=== PATIENT | male | born 1960 | race Caucasian/White ===

== ENCOUNTER → 2016-12-13 | Outpatient (CLI) | payer BC, OTHER ==
[~2016-12-13] MED LIST: ATEN50TA2 PO; SYNT175T2 PO
[2016-12-13 13:29] LABS: BASO # 0.1 K/mm3 (0.0-0.2); BASO % 1.2 % (0.0-1.0); EOS # 0.3 K/mm3 (0.0-0.50); EOS % 3.1 % (0.0-3.0); LARGE UNSTAINED CELL # 0.2 K/mm3 (0.0-0.4); LARGE UNSTAINED CELL % 2.1 % (0.0-4.0); LYMPH # 2.5 K/mm3 (1.5-4.5); LYMPH % 27.8 % (24.0-44.0); MEAN CORPUSCULAR HEMOGLOBIN 31.3 pg (27.0-33.0); MEAN CORPUSCULAR HGB CONC 35.1 g/dl (32.0-36.5); MEAN CORPUSCULAR VOLUME 89.1 fl (80.0-96.0); MONO # 0.6 K/mm3 (0.0-0.8); MONO % 7.3 % (0.0-5.0); NEUTROPHILS % 58.4 % (36.0-66.0); PLATELET COUNT, AUTOMATED 211 k/mm3 (150-450); RED CELL DISTRIBUTION WIDTH 12.8 % (11.5-14.5); WHITE BLOOD COUNT 8.5 K/mm3 (4.0-10.0)
[2016-12-13 13:39] LABS: ALBUMIN 3.8 GM/DL (3.2-5.2); ALKALINE PHOSPHATASE 74 U/L (45-117); ALT/SGPT 49 U/L (12-78); ANION GAP 9 MEQ/L (8-16); AST/SGOT 24 U/L (15-37); BILIRUBIN,TOTAL 0.6 MG/DL (0.2-1.0); BLOOD UREA NITROGEN 15 MG/DL (7-18); CALCIUM LEVEL 8.8 MG/DL (8.5-10.1); CARBON DIOXIDE LEVEL 27 MEQ/L (21-32); CHLORIDE LEVEL 104 MEQ/L (98-107); CHOLESTEROL LEVEL 201 MG/DL (<200); CREATININE FOR GFR 1.04 MG/DL (0.70-1.30); FREE T4 1.02 NG/DL (0.76-1.46); GLOMERULAR FILTRATION RATE > 60.0 (>56); GLUCOSE, FASTING 94 MG/DL (70-105); POTASSIUM SERUM 4.6 MEQ/L (3.5-5.1); SODIUM LEVEL 140 MEQ/L (136-145); TOTAL PROTEIN 7.6 GM/DL (6.4-8.2); TRIGLYCERIDES LEVEL 229 MG/DL (<150)
== END ==
LOC: M WUC 09:59
PROVIDERS: ATTEND Family Medicine
DX: I10 Essential (primary) hypertension (principal); E03.9 Hypothyroidism, unspecified

== ENCOUNTER → 2017-02-26 | Outpatient (CLI) | payer OTHER, BC ==
[2017-02-26 13:53] LABS: FREE T4 1.62 NG/DL (0.76-1.46)
== END ==
LOC: M WUC 11:36
PROVIDERS: ATTEND Family Medicine
DX: E03.9 Hypothyroidism, unspecified (principal)

== ENCOUNTER → 2017-04-23 | Outpatient (CLI) | payer OTHER, BC ==
[2017-04-23 15:10] LABS: FREE T4 1.04 NG/DL (0.76-1.46)
== END ==
LOC: M WUC 10:45
PROVIDERS: ATTEND Family Medicine
DX: E03.9 Hypothyroidism, unspecified (principal)

== ENCOUNTER → 2018-01-27 | Outpatient (CLI) | payer OTHER, BC ==
[2018-01-27 18:12] LABS: BASO # 0.1 10^3/uL (0.0-0.2); BASO % 0.9 % (0.0-1.0); EOS # 0.1 10^3/uL (0.0-0.50); EOS % 1.7 % (0.0-3.0); HEMATOCRIT 43.8 % (42.0-52.0); HEMOGLOBIN 14.6 g/dl (13.5-17.5); LYMPH # 2.5 10^3/uL (1.5-4.5); LYMPH % 31.4 % (24.0-44.0); MEAN CORPUSCULAR HEMOGLOBIN 29.9 pg (27.0-33.0); MEAN CORPUSCULAR HGB CONC 33.3 g/dl (32.0-36.5); MEAN CORPUSCULAR VOLUME 89.6 fl (80.0-96.0); MONO # 0.9 10^3/uL (0.0-0.8); MONO % 10.9 % (0.0-5.0); NEUTROPHILS # 4.3 10^3/uL (1.8-7.7); NEUTROPHILS % 54.1 % (36.0-66.0); PLATELET COUNT, AUTOMATED 211 10^3/uL (150-450); RED BLOOD COUNT 4.89 10^6/uL (4.30-6.10); RED CELL DISTRIBUTION WIDTH 12.9 % (11.5-14.5); WHITE BLOOD COUNT 7.9 10^3/uL (4.0-10.0)
[2018-01-27 18:30] LABS: ALBUMIN 3.8 GM/DL (3.2-5.2); ALBUMIN/GLOBULIN RATIO 0.95 (1.00-1.93); ALKALINE PHOSPHATASE 79 U/L (45-117); ALT/SGPT 37 U/L (12-78); ANION GAP 7 MEQ/L (8-16); AST/SGOT 22 U/L (7-37); BILIRUBIN,TOTAL 0.7 MG/DL (0.2-1.0); BLOOD UREA NITROGEN 14 MG/DL (7-18); CALCIUM LEVEL 8.5 MG/DL (8.5-10.1); CARBON DIOXIDE LEVEL 27 MEQ/L (21-32); CHLORIDE LEVEL 107 MEQ/L (98-107); CHOLESTEROL LEVEL 181 MG/DL (<200); CHOLESTEROL RISK RATIO 5.027 (<5); CREATININE FOR GFR 1.02 MG/DL (0.70-1.30); FREE T4 1.23 NG/DL (0.76-1.46); GLOMERULAR FILTRATION RATE > 60.0 (>56); GLUCOSE, FASTING 101 MG/DL (70-100); HDL CHOLESTEROL 36 MG/DL (>40); LDL CHOLESTEROL 111 MG/DL (<100); NON-HDL-C 145 MG/DL; POTASSIUM SERUM 4.6 MEQ/L (3.5-5.1); SODIUM LEVEL 141 MEQ/L (136-145); TOTAL PROTEIN 7.8 GM/DL (6.4-8.2); TRIGLYCERIDES LEVEL 169 MG/DL (<150)
== END ==
LOC: M WUC 10:13
DX: I10 Essential (primary) hypertension (principal); E03.9 Hypothyroidism, unspecified

== ENCOUNTER → 2018-03-25 | Outpatient (CLI) | payer OTHER, BC ==
[2018-03-25 17:31] LABS: ALBUMIN 3.5 GM/DL (3.2-5.2); ALBUMIN/GLOBULIN RATIO 0.97 (1.00-1.93); ALKALINE PHOSPHATASE 82 U/L (45-117); ALT/SGPT 42 U/L (12-78); AST/SGOT 20 U/L (7-37); BILIRUBIN,DIRECT 0.1 MG/DL (0.0-0.2); BILIRUBIN,TOTAL 0.5 MG/DL (0.2-1.0); CHOLESTEROL LEVEL 130 MG/DL (<200); CHOLESTEROL RISK RATIO 4.482 (<5); FREE T4 1.03 NG/DL (0.76-1.46); HDL CHOLESTEROL 29 MG/DL (>40); LDL CHOLESTEROL 58 MG/DL (<100); NON-HDL-C 101 MG/DL; THYROID STIMULATING HORMONE 0.268 uIU/ML (0.358-3.740); TOTAL PROTEIN 7.1 GM/DL (6.4-8.2); TRIGLYCERIDES LEVEL 217 MG/DL (<150)
== END ==
LOC: M WUC 11:36
DX: E03.9 Hypothyroidism, unspecified (principal); E78.2 Mixed hyperlipidemia
CPT/HCPCS: 84443

== ENCOUNTER → 2018-09-21 | Outpatient (CLI) | payer OTHER, BC ==
[2018-09-21 18:58] LABS: BLOOD UREA NITROGEN 17 MG/DL (7-18); CALCIUM LEVEL 8.6 MG/DL (8.5-10.1); CARBON DIOXIDE LEVEL 27 MEQ/L (21-32); CHLORIDE LEVEL 106 MEQ/L (98-107); CREATININE FOR GFR 1.03 MG/DL (0.70-1.30); GLOMERULAR FILTRATION RATE > 60.0 (>56); GLUCOSE, FASTING 104 MG/DL (70-100); POTASSIUM SERUM 4.4 MEQ/L (3.5-5.1); SODIUM LEVEL 139 MEQ/L (136-145)
== END ==
LOC: M WUC 08:53
PROVIDERS: ATTEND Physician Assistant
DX: I10 Essential (primary) hypertension (principal)

== ENCOUNTER → 2019-03-26 | Outpatient (CLI) | payer OTHER, BC ==
[2019-03-26 12:52] LABS: ALBUMIN 3.7 GM/DL (3.2-5.2); ALT/SGPT 38 U/L (12-78); BILIRUBIN,TOTAL 0.7 MG/DL (0.2-1.0); BLOOD UREA NITROGEN 18 MG/DL (7-18); CALCIUM LEVEL 8.2 MG/DL (8.5-10.1); CARBON DIOXIDE LEVEL 30 MEQ/L (21-32); CHLORIDE LEVEL 105 MEQ/L (98-107); CHOLESTEROL LEVEL 132 MG/DL (<200); CHOLESTEROL RISK RATIO 3.771 (<5); FREE T4 1.09 NG/DL (0.76-1.46); GLOMERULAR FILTRATION RATE > 60.0 (>56); GLUCOSE, FASTING 86 MG/DL (70-100); HDL CHOLESTEROL 35 MG/DL (>40); LDL CHOLESTEROL 67 MG/DL (<100); NON-HDL-C 97 MG/DL; POTASSIUM SERUM 4.5 MEQ/L (3.5-5.1); SODIUM LEVEL 140 MEQ/L (136-145); TOTAL PROTEIN 7.1 GM/DL (6.4-8.2); TRIGLYCERIDES LEVEL 150 MG/DL (<150)
== END ==
LOC: M WUC 10:48
PROVIDERS: ATTEND Physician Assistant
DX: E03.9 Hypothyroidism, unspecified (principal); E78.2 Mixed hyperlipidemia; I10 Essential (primary) hypertension

== ENCOUNTER → 2019-10-20 | Outpatient (CLI) | payer BC, OTHER ==
--- NOTE | 2019-10-25 00:15 | SLEEPHOME ---
DATE OF PROCEDURE: 10/20/2019 ORDERED BY: Dr. Shanna Bernal Diagnostic home sleep testing was performed due to concern for the obstructive sleep apnea syndrome. For testing a nocturnal T3 respiratory monitoring device was used. Continuous record was made of pulse, oxygen saturation, airflow, chest, abdominal strain and body position. 9 hours and 59 minutes of data were reviewed. There were 7 hours and 34 minutes marked as time in bed. During the interval marked time in bed, there were 565 respiratory events identified of 10 seconds in duration or greater for a respiratory event index of 74.6. The events were primarily obstructive. Baseline pulse rate 66. Pulse rate ranged 44-93. Baseline saturation 92%, saturations fell as low as 71%. Testing was performed in both the supine and nonsupine positions. IMPRESSION: Abnormal home sleep testing with repetitive respiratory events and oxygen desaturations to 71% with a respiratory event index of 74.6 is consistent with the obstructive sleep apnea syndrome. RECOMMENDATIONS: The patient should be encouraged to undergo a formal sleep evaluation.
== END ==
LOC: M SLEEP HO 10:47
PROVIDERS: ATTEND Internal Medicine Pulmonary Disease
DX: G47.30 Sleep apnea, unspecified (principal)

== ENCOUNTER → 2019-11-26 | Outpatient (CLI) | payer BC, OTHER ==
--- NOTE | 2019-11-28 14:19 | SLEEPCENT ---
DATE OF PROCEDURE: 11/26/2019 ORDERED BY: Dr. Bernal Nocturnal polysomnography was performed for the titration of pressure therapy in this patient with obstructive sleep apnea syndrome. Apnea-hypopnea index of 74.6. For testing the patient was fit with a ResMed Quattro full-face mask of medium size; 4 cm of water pressure were applied to the circuit and the lights were extinguished. 7 hours and 46 minutes of data were reviewed. There were 295.5 minutes of sleep identified. Sleep latency was prolonged at 62 minutes. Rapid eye movement (REM) latency was also prolonged at 176 minutes. Sleep architecture improved with progressive pressure therapy. The patient slept well through REM at CPAP 16 cm. However, late in the study, the patient assumed the supine position with re-occurrence of apneic events, some central oxygen desaturations into the upper 80s. Some activity was also seen in the limb leads but limb movement arousals were few. IMPRESSION: Obstructive sleep apnea syndrome (G47.33). RECOMMENDATIONS" Initiation of CPAP at a pressure 16 would seem appropriate based on these findings. However, the occurrence of apneic events late in the study is troublesome and close clinical followup is recommended. Once the patient has become accustomed to the mask it may prudent to arrange for a repeat full night titration to address central events.
== END ==
LOC: M SLEEP 20:00
PROVIDERS: ATTEND Internal Medicine Pulmonary Disease
DX: G47.33 Obstructive sleep apnea (adult) (pediatric) (principal)

== ENCOUNTER → 2020-03-26 | Outpatient (CLI) | payer OTHER, BC ==
[2020-03-26 16:18] LABS: BASO # 0.1 10^3/uL (0.0-0.2); BASO % 0.8 % (0.0-1.0); EOS # 0.1 10^3/uL (0.0-0.5); EOS % 1.4 % (0.0-3.0); HEMATOCRIT 43.1 % (42.0-52.0); HEMOGLOBIN 14.2 g/dl (13.5-17.5); LYMPH # 2.8 10^3/uL (1.5-5.0); LYMPH % 31.6 % (24.0-44.0); MEAN CORPUSCULAR HEMOGLOBIN 29.8 pg (27.0-33.0); MEAN CORPUSCULAR HGB CONC 32.9 g/dl (32.0-36.5); MEAN CORPUSCULAR VOLUME 90.5 fl (80.0-96.0); NEUTROPHILS # 4.9 10^3/uL (1.5-8.5); NEUTROPHILS % 54.5 % (36.0-66.0); PLATELET COUNT, AUTOMATED 212 10^3/uL (150-450); RED BLOOD COUNT 4.76 10^6/uL (4.30-6.10)
[2020-03-26 16:55] LABS: ALBUMIN 3.7 GM/DL (3.2-5.2); ALT/SGPT 43 U/L (12-78); BILIRUBIN,TOTAL 0.4 MG/DL (0.2-1.0); BLOOD UREA NITROGEN 17 MG/DL (7-18); CALCIUM LEVEL 8.7 MG/DL (8.5-10.1); CARBON DIOXIDE LEVEL 31 MEQ/L (21-32); CHLORIDE LEVEL 103 MEQ/L (98-107); CHOLESTEROL LEVEL 147 MG/DL (<200); CHOLESTEROL RISK RATIO 4.323 (<5); CREATININE FOR GFR 1.06 MG/DL (0.70-1.30); FREE T4 0.99 NG/DL (0.76-1.46); GLOMERULAR FILTRATION RATE > 60.0 (>56); GLUCOSE, FASTING 90 MG/DL (70-100); HDL CHOLESTEROL 34 MG/DL (>40); LDL CHOLESTEROL 68 MG/DL (<100); NON-HDL-C 113 MG/DL; POTASSIUM SERUM 4.4 MEQ/L (3.5-5.1); SODIUM LEVEL 137 MEQ/L (136-145); TOTAL PROTEIN 7.5 GM/DL (6.4-8.2); TRIGLYCERIDES LEVEL 225 MG/DL (<150)
== END ==
LOC: M WUC 12:08
PROVIDERS: ATTEND Family Medicine
DX: Z00.00 Encounter for general adult medical examination without abnormal findings (principal)

== ENCOUNTER → 2020-05-01 | Outpatient (CLI) | payer SELFPAY | LOC: M LABSMTC 09:11 | PROVIDERS: ATTEND Pediatrics | DX: Z20.828 Contact with and (suspected) exposure to other viral communicable diseases (principal) ==

== ENCOUNTER → 2020-06-15 | Outpatient (REF) | payer OTHER | LOC: M LAB REF 17:16 | PROVIDERS: ATTEND Family Medicine | DX: R10.9 Unspecified abdominal pain (principal); R31.9 Hematuria, unspecified ==

== ENCOUNTER → 2020-07-12 | Outpatient (CLI) | payer OTHER ==
[2020-07-12 18:29] LABS: FREE T4 1.16 NG/DL (0.76-1.46); THYROID STIMULATING HORMONE 4.84 uIU/ML (0.358-3.740)
== END ==
LOC: M WUC 11:06
PROVIDERS: ATTEND Family Medicine
DX: E03.9 Hypothyroidism, unspecified (principal)

== ENCOUNTER → 2020-07-22 | Outpatient (CLI) | payer OTHER ==
[~2020-07-22] MED LIST changes: +ATOR1TAB19 PO; +METO1TAB7 PO; +OMEP40CA97 PO
== END ==
LOC: M LABSMTC 10:41
PROVIDERS: ATTEND Anesthesiology
DX: Z01.812 Encounter for preprocedural laboratory examination (principal); Z20.822 Contact with and (suspected) exposure to COVID-19

== ENCOUNTER 2020-07-27 06:56 | Day surgery (SDC) | payer BC, OTHER ==
[~2020-07-27] VITALS: Ht 175.3 cm; Wt 126.3 kg
[2020-07-27] MEDS ORDERED: NS 1,000 ML IV ONE (07:00)
[2020-07-27] MEDS ORDERED: LIDOCAINE 2% 100MG/5ML SDV (FOR ANES.) As Ordered ONE (07:24)
[2020-07-27] MEDS ORDERED: propofoL 200 MG/20 ML VIAL As Ordered ONE (07:24)
--- NOTE | 2020-07-27 08:23 | ROOR ---
Patient Name: Gutierrez Whitt Procedure Date: 07/27/2020 8:06 AM Date of : 1960 Age: 59 Room: [facility] Gender: Male Note Status: Finalized Procedure: Upper Endoscopy + Biopsies Indications: Heartburn, Exclusion of Jacob's esophagus Providers: Payam Peralta MD Referring MD: Isa Crowe MD Requesting Provider: Medicines: Monitored Anesthesia Care Complications: No immediate complications. Procedure: Pre-Anesthesia Assessment: - The heart rate, respiratory rate, oxygen saturations, blood pressure, adequacy of pulmonary ventilation, and response to care were monitored throughout the procedure. The Endoscope was introduced through the mouth, and advanced to the second part of duodenum. The upper GI endoscopy was accomplished without difficulty. The patient tolerated the procedure well. Findings: The Z-line was regular and was found 40 cm from the incisors. Multiple biopsies were obtained with cold forceps for evaluation to rule out Jacob's Esophagus randomly at the gastroesophageal junction. A small hiatal hernia was present. Localized mild inflammation characterized by congestion (edema) and linear erosions was found in the gastric antrum. Biopsies were taken with a cold forceps for Helicobacter pylori testing. The exam of the duodenum was otherwise normal. Impression: - Z-line regular, 40 cm from the incisors. - Small hiatal hernia. - Mucosal changes suspicious for gastritis. Biopsied. - Multiple biopsies were obtained at the gastroesophageal junction. - The examination was otherwise normal. Recommendation: - Patient has a contact number available for emergencies. The signs and symptoms of potential delayed complications were discussed with the patient. Return to normal activities tomorrow. Written discharge instructions were provided to the patient. - High fiber diet. - Discharge patient to home. - Follow an antireflux regimen. - Continue present medications. - Await pathology results. - Telephone GI clinic for pathology results in 1 week. - Return to referring physician. - The findings and recommendations were discussed with the patient. Procedure Code(s): --- Professional --- 44011, Esophagogastroduodenoscopy, flexible, transoral; with biopsy, single or multiple Diagnosis Code(s): --- Professional --- K44.9, Diaphragmatic hernia without obstruction or gangrene K31.89, Other diseases of stomach and duodenum R12, Heartburn CPT copyright 2019 [employer]. All rights reserved. The codes documented in this report are preliminary and upon data coder operator review may be revised to meet current compliance requirements. Payam Peralta MD Payam Peralta MD 07/27/2020 8:22:42 AM Electronically signed by Payam Peralta MD Number of Addenda: 0 Note Initiated On: 07/27/2020 8:06 AM Estimated Blood Loss: Estimated blood loss: none.
--- NOTE | 2020-07-27 08:33 | ROOR ---
Patient Name: Gutierrez Whitt Procedure Date: 07/27/2020 8:07 AM Date of : 1960 Age: 59 Room: [facility] Gender: Male Note Status: Finalized Procedure: Total Colonoscopy to Cecum + ileoscopy Indications: High risk colon cancer surveillance: Personal history of colonic polyps Providers: Payam Peralta MD Referring MD: Isa Crowe MD Requesting Provider: Medicines: Monitored Anesthesia Care Complications: No immediate complications. Procedure: Pre-Anesthesia Assessment: - The heart rate, respiratory rate, oxygen saturations, blood pressure, adequacy of pulmonary ventilation, and response to care were monitored throughout the procedure. The Colonoscope was introduced through the anus and advanced to the terminal ileum, with identification of the appendiceal orifice and IC valve. The colonoscopy was performed without difficulty. The patient tolerated the procedure well. The quality of the bowel preparation was excellent. Findings: The perianal and digital rectal examinations were normal. Non-bleeding internal hemorrhoids were found during retroflexion. The hemorrhoids were small and Grade I (internal hemorrhoids that do not prolapse). No other significant abnormalities were identified in a careful examination of the remainder of the colon. The exam was otherwise without abnormality on direct and retroflexion views. The terminal ileum appeared normal. The exam was otherwise without abnormality. Impression: - Non-bleeding internal hemorrhoids. - The examination was otherwise normal on direct and retroflexion views. - The examined portion of the ileum was normal. - The examination was otherwise normal. - No specimens collected. - The exam was otherwise normal to the cecum. Recommendation: - Patient has a contact number available for emergencies. The signs and symptoms of potential delayed complications were discussed with the patient. Return to normal activities tomorrow. Written discharge instructions were provided to the patient. - High fiber diet. - Discharge patient to home. - Continue present medications. - Repeat colonoscopy in 5 years for surveillance. - Return to referring physician. - The findings and recommendations were discussed with the patient. Procedure Code(s): --- Professional --- 46739, Colonoscopy, flexible; diagnostic, including collection of specimen(s) by brushing or washing, when performed (separate procedure) Diagnosis Code(s): --- Professional --- Z86.010, Personal history of colonic polyps K64.0, First degree hemorrhoids CPT copyright 2019 [employer]. All rights reserved. The codes documented in this report are preliminary and upon senior salesforce developer review may be revised to meet current compliance requirements. Payam Peralta MD Payam Peralta MD 07/27/2020 8:33:21 AM Electronically signed by Payam Peralta MD Number of Addenda: 0 Note Initiated On: 07/27/2020 8:07 AM Estimated Blood Loss: Estimated blood loss: none.
[2020-07-27 09:08] VITALS: BP 138/72
== END 2020-07-27 09:05 | disposition home or self-care (01) ==
LOC: M OPP 06:56
PROVIDERS: ATTEND Internal Medicine Gastroenterology
DX: Z12.11 Encounter for screening for malignant neoplasm of colon (principal); Z86.010 Personal history of colon polyps; Z80.0 Family history of malignant neoplasm of digestive organs; K64.0 First degree hemorrhoids; K44.9 Diaphragmatic hernia without obstruction or gangrene; K31.89 Other diseases of stomach and duodenum; R12 Heartburn; I10 Essential (primary) hypertension; Z83.71 Family history of colonic polyps; Z79.899 Other long term (current) drug therapy

== ENCOUNTER → 2020-09-30 | Outpatient (CLI) | payer BC, OTHER ==
[2020-09-30 12:56] LABS: ALBUMIN 3.8 GM/DL (3.2-5.2); ALT/SGPT 30 U/L (12-78); BILIRUBIN,TOTAL 0.6 MG/DL (0.2-1.0); BLOOD UREA NITROGEN 18 MG/DL (7-18); CARBON DIOXIDE LEVEL 27 MEQ/L (21-32); CHLORIDE LEVEL 107 MEQ/L (98-107); CREATININE FOR GFR 0.93 MG/DL (0.70-1.30); FREE T4 1.02 NG/DL (0.76-1.46); GLOMERULAR FILTRATION RATE > 60.0 (>56); GLUCOSE, FASTING 91 MG/DL (70-100); POTASSIUM SERUM 4.3 MEQ/L (3.5-5.1); SODIUM LEVEL 139 MEQ/L (136-145); TOTAL PROTEIN 7.5 GM/DL (6.4-8.2)
[2020-09-30 13:28] LABS: FOLATE 9.2 NG/ML; TOTAL 25(OH) VITAMIN D 20.3 NG/ML (30.0-100.0); VITAMIN B12 LEVEL 345 PG/ML
[2020-09-30 14:01] LABS: HEMOGLOBIN A1c 5.5 %
[2020-10-01 12:08] LABS: ANTINUCLEAR ANTIBODIES DIRECT Negative (Negative)
== END ==
LOC: M WUC 09:28
PROVIDERS: ATTEND Family Medicine
DX: G62.9 Polyneuropathy, unspecified (principal); E03.9 Hypothyroidism, unspecified

== ENCOUNTER → 2021-01-12 | Outpatient (CLI) | payer BC, OTHER ==
[~2021-01-12] MED LIST changes: +OMEP40CA4 PO; -OMEP40CA97 PO
[2021-01-12 20:03] LABS: ALBUMIN 3.7 GM/DL (3.2-5.2); ALT/SGPT 26 U/L (12-78); BILIRUBIN,TOTAL 0.6 MG/DL (0.2-1.0); BLOOD UREA NITROGEN 14 MG/DL (7-18); CALCIUM LEVEL 8.5 MG/DL (8.8-10.2); CARBON DIOXIDE LEVEL 30 MEQ/L (21-32); CHLORIDE LEVEL 108 MEQ/L (98-107); CHOLESTEROL LEVEL 123 MG/DL (<200); CHOLESTEROL RISK RATIO 3.727 (<5); CREATININE FOR GFR 1.02 MG/DL (0.70-1.30); FREE T4 1.21 NG/DL (0.76-1.46); GLOMERULAR FILTRATION RATE > 60.0 (>49); GLUCOSE, FASTING 87 MG/DL (70-100); HDL CHOLESTEROL 33 MG/DL (>40); LDL CHOLESTEROL 66 MG/DL (<100); NON-HDL-C 90 MG/DL; SODIUM LEVEL 141 MEQ/L (136-145); TOTAL PROTEIN 7.2 GM/DL (6.4-8.2); TRIGLYCERIDES LEVEL 122 MG/DL (<150)
== END ==
LOC: M WUC 15:38
PROVIDERS: ATTEND Nurse Practitioner Family
DX: E03.9 Hypothyroidism, unspecified (principal)

== ENCOUNTER 2021-03-03 03:57 | Emergency (ER) | payer BC, OTHER ==
[~2021-03-03] VITALS: Ht 175.3 cm; Wt 121.9 kg
[2021-03-03 04:48] LABS: BASO % 0.4 % (0.0-1.0); EOS # 0.1 10^3/uL (0.0-0.5); EOS % 1.3 % (0.0-3.0); HEMATOCRIT 43.1 % (42.0-52.0); HEMOGLOBIN 14.7 g/dl (13.5-17.5); LYMPH # 2.7 10^3/uL (1.5-5.0); LYMPH % 35.5 % (24.0-44.0); MEAN CORPUSCULAR HEMOGLOBIN 29.9 pg (27.0-33.0); MEAN CORPUSCULAR HGB CONC 34.1 g/dl (32.0-36.5); MEAN CORPUSCULAR VOLUME 87.8 fl (80.0-96.0); MONO # 0.9 10^3/uL (0.0-0.8); MONO % 12.5 % (2.0-8.0); NEUTROPHILS # 3.7 10^3/uL (1.5-8.5); NEUTROPHILS % 49.6 % (36.0-66.0); PLATELET COUNT, AUTOMATED 201 10^3/uL (150-450); RED BLOOD COUNT 4.91 10^6/uL (4.30-6.10); WHITE BLOOD COUNT 7.5 10^3/uL (4.0-10.0)
[2021-03-03 05:07] LABS: BLOOD UREA NITROGEN 20 MG/DL (7-18); CALCIUM LEVEL 8.3 MG/DL (8.8-10.2); CARBON DIOXIDE LEVEL 29 MEQ/L (21-32); CHLORIDE LEVEL 106 MEQ/L (98-107); CREATININE FOR GFR 1.06 MG/DL (0.70-1.30); GLOMERULAR FILTRATION RATE > 60.0 (>49); GLUCOSE, FASTING 114 MG/DL (70-100); POTASSIUM SERUM 3.6 MEQ/L (3.5-5.1); SODIUM LEVEL 139 MEQ/L (136-145)
[2021-03-03 05:21] LABS: RSV AMPLIFICATION NEGATIVE (NEGATIVE)
--- NOTE | 2021-03-03 05:29 | REPVR ---
PROCEDURE INFORMATION: Exam: XR Chest Exam date and time: 03/03/2021 4:10 AM Age: 60 years old Clinical indication: Other: Chest pain TECHNIQUE: Imaging protocol: XR of the chest. Views: 1 view. COMPARISON: No relevant prior studies available. FINDINGS: Lungs: Unremarkable. No consolidation. Pleural spaces: Unremarkable. No pleural effusion. No pneumothorax. Heart/Mediastinum: Unremarkable. No cardiomegaly. Bones/joints: Unremarkable. IMPRESSION: No acute findings. Electronically signed by: Michael Hazel On 03/03/2021 05:29:22 AM
--- OUTSIDE RECORDS SUMMARY | 2021-03-03 05:33 | CCD | Continuity of Care Document ---
Author Author Gutierrez CHAVEZ M.D. Organization Unknown Address [address] [place] [address] Phone [phone] Care Team Providers Care Analytics Senior Manager Name Role Phone [facility] [phone] Edmond Reyez III, MD [facility] [phone] Payam Peralta M.D. & Associate [facility] [phone] Problems Active Problems Provider Date Hypothyroidism Ibeth Gracia FNP Onset: 07/14/2020 Essential hypertension Ibeth Gracia FNP Onset: Obstructive sleep apnea syndrome Ibeth Gracia FNP Onset: 07/14/2020 Social History Type Date Description Comments Sex Unknown Tobacco Use Start: Unknown Never Smoked Cigarettes Smoking Status Reviewed: 01/14/21 Never Smoked Cigarettes Tobacco Use Start: Unknown Never Used Smokeless Tobacco ETOH Use Occasionally consumes alcohol Tobacco Use Start: Unknown Patient has never smoked Recreational Drug Use Denies Drug Use Exercise Type/Frequency Exercises regularly lift s weights only Tattoo/Piercing None Sun Exposure Uses sunscreen Seat Belt/Car Seat Always uses seat belt Bike Helmet Never Smoke Alarms Yes Smoke Alarms Carbon Monoxide Detector: Yes Allergies, Adverse Reactions, Alerts Description No Known Drug Allergies Medications Active Medications SIG Qnty Indications Ordering Provide r Date Gabapentin 300mg Capsules 1 by mouth three times a day as needed for pain in feet 60caps G62.9 Isa Chavez M.D. 09/30/2020 Atorvastatin Calcium 10mg Tablets take one tablet by mouth every day 90tabs E78.2 Isa Chavez M. D. 02/06/2018 Levothyroxine Sodium 200mcg Tablet s take one tablet by mouth every day 90tabs E03.9 Isa Chavez M.D. 02/06/2018 Metoprolol Succinate ER 50mg Tablets ER 24HR Take One Tablet By Mouth Every Day 90tabs I10 Isa Goodman ms, M.D. 05/24/2017 Multivitamin/Minerals Capsules one po qd otc Unknown Omeprazole 40mg Capsules DR 1 by mouth every day as needed 90caps Isa Chavez M.D. Saline Nasal [place] 0.65% Solution use 4 times a day for nasal congestion/irritation Unkn own Flonase Allergy Relief 50mcg/Act Suspension 2 spray each nostril daily Unknown 0 Vitamin D 50mcg (1999) Capsules Unknown Immunizations CPT Code Status Date Vaccine Lot # [id number] Given 08/04/2020 Pfizer-Sars-(Cov id-19) vaccine, mRNA, LNP-S, PF, 30 mcg/ 0.3 mL 06381 Given 07/14/2020 Pfizer-Sars-(Cov id-19) vaccine, mRNA, LNP-S, PF, 30 mcg/ 0.3 mL 06872 Given 03/29/2020 Influenza Virus Vaccine, Quadrivalent,age 3 and up,multidose vial [id number] 48274 Given 03/27/2019 Influenza Virus Vaccine, Quadrivalent,age 3 and up,multidose vial [id number] 68970 Given 03/27/2018 Influenza Virus Vaccine, Quadrivalent,age 3 and up,multidose vial [id number] 53424 Given 01/15/2015 Adacel 11 Yrs or older [id number] Given 01/02/2014 Adacel 11 Yrs or older [id number] Refused 01/15/2015 Influenza Vaccination Vital Signs Date Vital Result Comment 01/14/2021 8:24am BP Systolic 139 mmHg BP Diastolic 80 mmHg Heart Rate 55 /min Body Temperature 97.1 F Respiratory Rate 18 /min Height 69.25 inches 5'9.25" Weight 271.12 lb O2 % BldC Oximetry 98 % Peak Expiratory Flow Rate 504 Estimated Peak Flow Rate Warren Body Weight 160 lb BMI (Body Mass Index) 39.7 kg/m2 09/30/2020 8:16am BP Systolic 136 mmHg BP Diastolic 70 mmHg Heart Rate 63 /min Body Temperature 96.8 F Respiratory Rate 16 /min Height 69.25 inches 5'9.25" Weight 274.12 lb O2 % BldC Oximetry 98 % Peak Expiratory Flow Rate 504 Estimated Peak Flow Rate Warren Body Weight 160 lb BMI (Body Mass Index) 40.2 kg/m2 Results Test Acquired Date Facility Test Result H/L Range Note Comprehensive Metabolic Profil 01/12/2021 [facility] [place], [place] [id number] [phone] Glucose, Fasting 87 mg/dL Normal 70-100 Blood Urea Nitrogen 14 mg/dL Normal 7-18 Creatinine For GFR 1.02 mg/dL Normal 0.70-1.30 Glomerular Filtration Rate > 60.0 Normal >49 1 Sodium Level 141 mEq/L Normal 136-145 Potassium Serum 4.0 mEq/L Normal 3.5-5.1 Chloride Level 108 mEq/L High 98-107 Carbon Dioxide Level 30 mEq/L Normal 21-32 Anion Gap 3 mEq/L Low 8-16 Calcium Level 8.5 mg/dL Low 8.8-10.2 Ast/Sgot 13 U/L Normal 7-37 Alt/SGPT 26 U/L Normal 12-78 Alkaline Phosphatase 79 U/L Normal 45-117 Bilirubin,Total 0.6 mg/dL Normal 0.2-1.0 Total Protein 7.2 GM/DL Normal 6.4-8.2 Albumin 3.7 GM/DL Normal 3.2-5.2 Albumin/Globulin Ratio 1.1 Normal Lipid Panel 01/12/[address] [facility] [place], [place] [id number] [phone] Triglycerides Level 122 mg/dL Normal <150 Cholesterol Level 123 mg/dL Normal <200 HDL Cholesterol 33 mg/dL Low >40 LDL Cholesterol 66 mg/dL Normal <100 Non-HDL-C 90 mg/dL Normal Cholesterol Risk Ratio 3.727 Normal <5 TSH And T4 Free ([facility]) 01/12/[address] [facility] [place], [place] [id number] [phone] Thyroid Stimulating Hormone 2.010 uIU/ML Normal 0. 358-3.740 Free T4 1.21 ng/dL Normal 0.76-1.46 Vitamin B12 & Folate 09/30/2020 [facility] enter [phone] Vitamin B12 Level 345 pg/mL Normal 2 Folate 9.2 NG/ML Normal 3 Laboratory test finding 09/30/2020 [facility] [phone] Total 25(Oh) Vitamin D 20.3 NG/ML Low 30.0-100. 0 Antinuclear Antibodies 09/30/2020 [facility] [phone] Antinuclear Antibodies Direct Negative Normal Ne gative 4 Comprehensive Metabolic Profil 09/30/2020 [facility] [phone] Glucose, Fasting 91 mg/dL Normal 70-100 Blood Urea Nitrogen 18 mg/dL Normal 7-18 Creatinine For GFR 0.93 mg/dL Normal 0.70-1.30 Glomerular Filtration Rate > 60.0 Normal >56 5 Sodium Level 139 mEq/L Normal 136-145 Potassium Serum 4.3 mEq/L Normal 3.5-5.1 Chloride Level 107 mEq/L Normal 98-107 Carbon Dioxide Level 27 mEq/L Normal 21-32 Anion Gap 5 mEq/L Low 8-16 Calcium Level 8.0 mg/dL Low 8.5-10.1 Ast/Sgot 19 U/L Normal 7-37 Alt/SGPT 30 U/L Normal 12-78 Alkaline Phosphatase 96 U/L Normal 45-117 Bilirubin,Total 0.6 mg/dL Normal 0.2-1.0 Total Protein 7.5 GM/DL Normal 6.4-8.2 Albumin 3.8 GM/DL Normal 3.2-5.2 Albumin/Globulin Ratio 1.0 Normal Laboratory test finding 09/30/2020 [facility] [phone] Thyroid Stimulating Hormone 2.750 uIU/ML Normal 0. 358-3.740 Free T4 1.02 ng/dL Normal 0.76-1.46 Hemoglobin A1c 09/30/2020 [facility] nter [phone] Hemoglobin A1c 5.5 % Normal 6 Estimated Average Glucose 111 mg/dL High 60-110 1 Units are mL/min/1.73 m2 Chronic Kidney Disease Staging per NKF: Stage I & II GFR >=60 Normal to Mildly Decreased Stage III GFR 30-59 Moderately Decreased Stage IV GFR 15-29 Severely Decreased Stage V GFR <15 Very Little GFR Left ESRD GFR <15 on GANG INVESTIGATOR 2 VITAMIN B12 NORMAL RANGE NORMAL 247 - 911 PG/ML INDETERMINATE 211 - 246 PG/ML DEFICIENT LESS THAN 211 PG/ML 3 FOLATE NORMAL RANGE NORMAL GREATER THAN 5.4 NG/ML INDETERMINATE 3.4-5.4 NG/ML DEFICIENT LESS THAN 3.4 NG/ML 4 Performed at: RN - [facility] [address] [id number] Electrostatic Painter: Yina Iverson MD, Phone: [phone] Units are mL/min/1.73 m2 Chronic Kidney Disease Staging per NKF: Stage I & II GFR >=60 Normal to Mildly Decreased Stage III GFR 30-59 Moderately Decreased Stage IV GFR 15-29 Severely Decreased Stage V GFR <15 Very Little GFR Left ESRD GFR <15 on GANG INVESTIGATOR 6 REFERENCE RANGES: <=5.6% NORMAL 5.7-6.4% SUGGESTS IMPAIRED GLUCOSE META BOLISM/PREDIABETIC >= 6.5% ABNORMAL Procedures Date Code Description Status 01/14/2021 08418 Office/Outpatient Established Mo d MDM 30-39 Min Completed 09/30/2020 43861 Office/Outpatient Established Mo d MDM 30-39 Min Completed Medical Devices Description No Information Available Encounters Type Date Location Provider Dx Diagnosis Office Visit 01/14/2021 8:15a Main Office Isa Chavez M.D. E 03.9 Hypothyroidism, unspecified I10 Essential (primary) hyperten arnulfo G47.33 Obstructive sleep apnea (hay lt) (pediatric) E55.9 Vitamin D deficiency, unspec ified E78.2 Mixed hyperlipidemia Office Visit 09/30/2020 8:15a Main Office Isa Chavez M.D. G 62.9 Polyneuropathy, unspecified Assessments Date Code Description Provider 01/14/2021 E03.9 Hypothyroidism, unspecified Will Isa mcknight M.D. 01/14/2021 I10 Essential (primary) hypertension Isa Chavez M.D. 01/14/2021 G47.33 Obstructive sleep apnea (adult) (pediatric) Isa Chavez M.D. 01/14/2021 E55.9 Vitamin D deficiency, unspecifie d Isa Chavez M.D. 01/14/2021 E78.2 Mixed hyperlipidemia Lorenza Chavez M.D. 09/30/2020 G62.9 Polyneuropathy, unspecified Will Isa mcknight M.D. Plan of Treatment Future Appointment(s):* 08/09/2021 9:00 am - Isa Chavez M.D. at Main Office 01/14/2021 - Isa Chavez M.D.* E03.9 Hypothyroidism, unspecified* New Labs:* Free T4, Scheduled: 07/06/21 * Thyroid Stimulating Hormone, Scheduled: 07/06/21 * Comments:* levels are good, repeat in 6 months. * I10 Essential (primary) hypertension * G47.33 Obstructive sleep apnea (adult) (pediatric)* Comments:* Using CPAP. * E55.9 Vitamin D deficiency, unspecified* New Labs:* Vitamin D 25-Hydroxy, Scheduled: 07/06/21 * Comments:* repeat level in 6 months, doing well. * E78.2 Mixed hyperlipidemia Goals 01/14/2021 - Isa Chavez M.D.* I10 Essential (primary) hypertension* Stay active and continue meds to maintain good blood pressure readings. Functional Status Functional Condition Comment Date Status Bifocal glasses Active Independent with all ADL's Activ e Cpap Machine Active Mental Status Mental Condition Comment Date Status None Active Referrals Description No Information Available
--- OUTSIDE RECORDS SUMMARY | 2021-03-03 05:33 | CCD | Continuity of Care Document ---
Author Author Gutierrez CHAVEZ M.D. Organization Unknown Address [address] [place] [address] Phone [phone] Care Team Providers Care Airline Operations Agent Name Role Phone [facility] [phone] Edmond Reyez III, MD [facility] [phone] Payam Peralta M.D. & Associate [facility] Problems Active Problems Provider Date Hypothyroidism Ibeth [...] needed 90caps Isa Chavez M.D. Saline Nasal [place] 0.65% Solution use 4 times a day for nasal congestion/irritation Unkn own Flonase Allergy Relief 50mcg/Act Suspension 2 spray each nostril daily Unknown 0 Vitamin D 50mcg (1999) Capsules Unknown Immunizations CPT Code Status Date Vaccine Lot # [id number] Given 08/04/2020 Pfizer-Sars-(Cov id-19) vaccine, mRNA, LNP-S, PF, 30 mcg/ 0.3 mL [id number] Given 07/14/2020 Pfizer-Sars-(Cov id-19) vaccine, mRNA, LNP-S, PF, 30 mcg/ 0.3 mL 93087 Given 03/29/2020 Influenza Virus Vaccine, Quadrivalent,age 3 and up,multidose vial [id number] 52116 Given 03/27/2019 Influenza Virus Vaccine, Quadrivalent,age 3 and up,multidose vial [id number] 28105 Given 03/27/2018 Influenza Virus Vaccine, Quadrivalent,age 3 and up,multidose vial [id number] 93526 Given 01/15/2015 Adacel 11 Yrs or older [id number] [place] [id number] Given 01/02/2014 Adacel 11 Yrs or older [id number] AA [id number] Refused 01/15/2015 Influenza Vaccination Vital Signs Date Vital Result Comment 01/14/2021 8:24am BP Systolic 139 mmHg BP Diastolic 80 mmHg Heart Rate 55 /min Body Temperature 97.1 F Respiratory Rate 18 /min Height 69.25 inches 5'9.25" Weight 271.12 lb O2 % BldC Oximetry 98 % Peak Expiratory Flow Rate 504 Estimated Peak Flow Rate [place] Body Weight 160 lb BMI (Body Mass Index) 39.7 kg/m2 09/30/2020 8:16am BP Systolic 136 mmHg BP Diastolic 70 mmHg Heart Rate 63 /min Body Temperature 96.8 F Respiratory Rate 16 /min Height 69.25 inches 5'9.25" Weight 274.12 lb O2 % BldC Oximetry 98 % Peak Expiratory Flow Rate 504 Estimated Peak Flow Rate [place] Body Weight 160 lb BMI (Body Mass Index) 40.2 kg/m2 Results Test Acquired Date Facility Test Result H/L Range Note Comprehensive Metabolic Profil 01/12/2021 [facility] [place], [place] [id number] [phone] Glucose, Fasting 87 mg/dL Normal 70-100 Blood [...] Albumin/Globulin Ratio 1.1 Normal Lipid Panel 01/12/[address] [facility] [address] [facility] [place], [place] [id number] [phone] Triglycerides Level 122 mg/dL Normal <150 Cholesterol Level 123 mg/dL Normal <200 HDL Cholesterol 33 mg/dL Low >40 LDL Cholesterol 66 mg/dL Normal <100 Non-HDL-C 90 mg/dL Normal Cholesterol Risk Ratio 3.727 Normal <5 TSH And T4 Free ([facility]) 01/12/[address] [facility] [address] [facility] [place], [place] [id number] [phone] Thyroid Stimulating Hormone 2.010 uIU/ML Normal 0. 358-3.740 Free T4 1.21 ng/dL Normal 0.76-1.46 Vitamin B12 & Folate 09/30/2020 [facility] enter [phone] Vitamin B12 Level 345 pg/mL Normal 2 Folate 9.2 NG/ML Normal 3 Laboratory test finding 09/30/2020 [facility] [phone] Total 25(Oh) Vitamin D 20.3 NG/ML Low 30.0-100. 0 Antinuclear Antibodies 09/30/2020 [facility] [phone] Antinuclear Antibodies Direct Negative Normal Ne gative 4 Comprehensive Metabolic Profil 09/30/2020 [facility] [phone] Glucose, Fasting 91 mg/dL Normal 70-100 Blood [...] Ratio 1.0 Normal Laboratory test finding 09/30/2020 [facility] [phone] Thyroid Stimulating Hormone 2.750 uIU/ML Normal 0. 358-3.740 Free T4 1.02 ng/dL Normal 0.76-1.46 Hemoglobin A1c 09/30/2020 [facility] nter [phone] Hemoglobin A1c 5.5 % Normal 6 Estimated Average Glucose 111 mg/dL High 60-110 1 Units are mL/min/1.73 m2 Chronic Kidney Disease Staging per NKF: Stage I & II GFR >=60 Normal to Mildly Decreased Stage III GFR 30-59 Moderately Decreased Stage IV GFR 15-29 Severely Decreased Stage V GFR <15 Very Little GFR Left ESRD GFR <15 on PARTS DESIGNER 2 VITAMIN B12 NORMAL RANGE NORMAL 247 - 911 PG/ML INDETERMINATE 211 - 246 PG/ML DEFICIENT LESS THAN 211 PG/ML 3 FOLATE NORMAL RANGE NORMAL GREATER THAN 5.4 NG/ML INDETERMINATE 3.4-5.4 NG/ML DEFICIENT LESS THAN 3.4 NG/ML 4 Performed at: RN - [facility] [address] [id number] Wax Machine Operator: Yina Iverson MD, Phone: [phone] Units are mL/min/1.73 m2 Chronic Kidney Disease Staging per NKF: Stage I & II GFR >=60 Normal to Mildly Decreased Stage III GFR 30-59 Moderately Decreased Stage IV GFR 15-29 Severely Decreased Stage V GFR <15 Very Little GFR Left ESRD GFR <15 on PARTS DESIGNER 6 REFERENCE RANGES: <=5.6% NORMAL 5.7-6.4% SUGGESTS IMPAIRED GLUCOSE META BOLISM/PREDIABETIC >= 6.5% ABNORMAL Procedures Date Code Description Status 09/30/2020 39405 Office/Outpatient Established Mo d MDM 30-39 Min Completed Medical Devices Description No Information Available Encounters Type Date Location Provider Dx Diagnosis Office Visit 09/30/2020 8:15a Main Office Isa Chavez M.D. G 62.9 Polyneuropathy, unspecified Assessments Date Code Description Provider 01/14/2021 E03.9 Hypothyroidism, unspecified Will Isa mcknight M.D. 01/14/2021 I10 Essential (primary) hypertension Isa Chavez M.D. 01/14/2021 G47.33 Obstructive sleep apnea (adult) (pediatric) Isa Chavez M.D. 01/14/2021 E55.9 Vitamin D deficiency, unspecifie d Isa Chavez M.D. 09/30/2020 G62.9 Polyneuropathy, unspecified Will Isa mcknight M.D. Plan of Treatment 01/14/2021 - Isa Chavez M.D.* E03.9 Hypothyroidism, unspecified* New Labs:* Free T4, Scheduled: 07/06/21 * Thyroid Stimulating Hormone, Scheduled: 07/06/21 * I10 Essential (primary) hypertension * G47.33 Obstructive sleep apnea (adult) (pediatric) * E55.9 Vitamin D deficiency, unspecified* New Labs:* Vitamin D 25-Hydroxy, Scheduled: 07/06/21 Functional Status Functional Condition Comment Date Status Bifocal glasses Active Independent with all ADL's Activ e Cpap Machine Active Mental Status Mental Condition Comment Date Status None Active Referrals Description No Information Available
--- OUTSIDE RECORDS SUMMARY | 2021-03-03 05:33 | CCD | Continuity of Care Document ---
Author Author Gutierrez GRACIA DIETETICS PROFESSOR Organization Unknown Address [address] [place] [address] Phone [phone] Care Team Providers Care Wastewater Design Engineer Name Role Phone [facility] [phone] Edmond Reyez III, MD [facility] [phone] Payam Peralta M.D. & Associate [facility] Problems Active Problems Provider Date Hypothyroidism Ibeth Gracia FNP Onset: 07/14/2020 Essential hypertension Ibeth Gracia FNP Onset: Obstructive sleep apnea syndrome Ibeth Gracia FNP Onset: 07/14/2020 Social History Type Date Description Comments Sex Unknown Tobacco Use Start: Unknown Never Smoked Cigarettes Smoking Status Reviewed: 09/30/20 Never Smoked Cigarettes Tobacco Use Start: Unknown [...] for pain in feet 60caps G62.9 Isa Crowe M.D. 09/30/2020 Atorvastatin Calcium 10mg Tablets take one tablet by mouth every day 90tabs E78.2 Isa Crowe M. D. 02/06/2018 Levothyroxine Sodium 200mcg Tablet s take one tablet by mouth every day 90tabs E03.9 Isa Crowe M.D. 02/06/2018 Metoprolol Succinate ER 50mg Tablets ER 24HR Take One Tablet By Mouth Every Day 90tabs I10 Isa Goodman ms, M.D. 05/24/2017 Multivitamin/Minerals Capsules one po qd otc Unknown Omeprazole 40mg Capsules DR 1 by mouth every day as needed 90caps Isa Crowe M.D. Saline Nasal [place] 0.65% Solution use 4 times a day for nasal congestion/irritation Unkn own Flonase Allergy Relief 50mcg/Act Suspension 2 spray each nostril daily Unknown 0 Immunizations CPT Code Status Date Vaccine Lot # [id number] Given 08/04/2020 Pfizer-Sars-(Cov id-19) vaccine, mRNA, LNP-S, PF, 30 mcg/ 0.3 mL 20320 Given 07/14/2020 Pfizer-Sars-(Cov id-19) vaccine, mRNA, LNP-S, PF, 30 mcg/ 0.3 mL 26578 Given 03/29/2020 Influenza Virus Vaccine, Quadrivalent,age 3 and up,multidose vial [id number] 05496 Given 03/27/2019 Influenza Virus Vaccine, Quadrivalent,age 3 and up,multidose vial [id number] 20797 Given 03/27/2018 Influenza Virus Vaccine, Quadrivalent,age 3 and up,multidose vial [id number] 57525 Given 01/15/2015 Adacel 11 Yrs [place] older [id number] [place] [id number] Given 01/02/2014 Adacel 11 Yrs [id number] [place] [id number] Refused 01/15/2015 Influenza Vaccination Vital Signs Date Vital Result Comment 09/30/2020 8:16am BP Systolic 136 mmHg BP Diastolic 70 mmHg Heart Rate 63 /min Body Temperature 96.8 F Respiratory Rate 16 /min Height 69.25 inches 5'9.25" Weight 274.12 lb O2 % BldC Oximetry 98 % Peak Expiratory Flow Rate 504 Estimated Peak Flow Rate [place] Body Weight 160 lb BMI (Body Mass Index) 40.2 kg/m2 07/14/2020 1:45pm BP Systolic 135 mmHg BP Diastolic 63 mmHg Heart Rate 63 /min Body Temperature 96.8 F Respiratory Rate 17 /min Height 69.25 inches 5'9.25" Weight 284.38 lb O2 % BldC Oximetry 98 % Peak Expiratory Flow Rate 506 Estimated Peak Flow Rate [place] Body Weight 160 lb BMI (Body Mass Index) 41.7 kg/m2 Results Test Acquired Date Facility Test Result H/L Range Note Comprehensive Metabolic Profil 01/12/2021 [facility] [place], [place] [id number] [phone] Glucose, Fasting 87 mg/dL Normal 70-100 Blood [...] Albumin/Globulin Ratio 1.1 Normal Lipid Panel 01/12/2021 [facility] X[facility] [place], [place] [id number] [phone] Triglycerides Level 122 mg/dL Normal <150 Cholesterol Level 123 mg/dL Normal <200 HDL Cholesterol 33 mg/dL Low >40 LDL Cholesterol 66 mg/dL Normal <100 Non-HDL-C 90 mg/dL Normal Cholesterol Risk Ratio 3.727 Normal <5 TSH And T4 Free ([facility]) 01/12/[address] [facility] [place], [place] [id number] [phone] Thyroid Stimulating Hormone 2.010 uIU/ML Normal 0. 358-3.740 Free T4 1.21 ng/dL Normal 0.76-1.46 Vitamin B12 & Folate 09/30/2020 [facility] enter [phone] Vitamin B12 Level 345 pg/mL Normal 2 Folate 9.2 NG/ML Normal 3 Laboratory test finding 09/30/2020 [facility] [phone] Total 25(Oh) Vitamin D 20.3 NG/ML Low 30.0-100. 0 Antinuclear Antibodies 09/30/2020 [facility] [phone] Antinuclear Antibodies Direct Negative Normal Ne gative 4 Comprehensive Metabolic Profil 09/30/2020 [facility] [phone] Glucose, Fasting 91 mg/dL Normal 70-100 Blood [...] Ratio 1.0 Normal Laboratory test finding 09/30/2020 [facility] [phone] Thyroid Stimulating Hormone 2.750 uIU/ML Normal 0. 358-3.740 Free T4 1.02 ng/dL Normal 0.76-1.46 Hemoglobin A1c 09/30/2020 [facility] nter [phone] Hemoglobin A1c 5.5 % Normal 6 Estimated Average Glucose 111 mg/dL High 60-110 1 Units are mL/min/1.73 m2 Chronic Kidney Disease Staging per NKF: Stage I & II GFR >=60 Normal to Mildly Decreased Stage III GFR 30-59 Moderately Decreased Stage IV GFR 15-29 Severely Decreased Stage V GFR <15 Very Little GFR Left ESRD GFR <15 on VENTILATING EXPERT 2 VITAMIN B12 NORMAL RANGE NORMAL 247 - 911 PG/ML INDETERMINATE 211 - 246 PG/ML DEFICIENT LESS THAN 211 PG/ML 3 FOLATE NORMAL RANGE NORMAL GREATER THAN 5.4 NG/ML INDETERMINATE 3.4-5.4 NG/ML DEFICIENT LESS THAN 3.4 NG/ML 4 Performed at: RN - [facility] [address] [id number] Cafe Aide: Yina Iverson MD, Phone: [phone] Units are mL/min/1.73 m2 Chronic Kidney Disease Staging per NKF: Stage I & II GFR >=60 Normal to Mildly Decreased Stage III GFR 30-59 Moderately Decreased Stage IV GFR 15-29 Severely Decreased Stage V GFR <15 Very Little GFR Left ESRD GFR <15 on VENTILATING EXPERT 6 REFERENCE RANGES: <=5.6% NORMAL 5.7-6.4% SUGGESTS IMPAIRED GLUCOSE META BOLISM/PREDIABETIC >= 6.5% ABNORMAL Procedures Date Code Description Status 09/30/2020 43639 Office/Outpatient Established Mo d MDM 30-39 Min Completed 07/14/2020 15764 Office/Outpatient Established Mo d MDM 30-39 Min Completed Medical Devices Description No Information Available Encounters Type Date Location Provider Dx Diagnosis Office Visit 09/30/2020 8:15a Main Office Isa Crowe M.D. G 62.9 Polyneuropathy, unspecified Office Visit 07/14/2020 1:45p Main Office Ibeth Gracia FNP E03.9 Hypothyroidism, unspecified I10 Essential (primary) hyperten arnulfo G47.33 Obstructive sleep apnea (hay lt) (pediatric) G56.03 Carpal tunnel syndrome, bila teral upper limbs M51.17 Intvrt disc disorders w radi culopathy, lumbosacral region Assessments Date Code Description Provider 09/30/2020 G62.9 Polyneuropathy, unspecified Will Isa mcknight M.D. 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 at Main Office 09/30/2020 - Isa Crowe M.D.* G62.9 Polyneuropathy, unspecified* New Medication:* Gabapentin 300 mg - 1 by mouth three times a day as needed for pain in feet * Comments:* hypersensitive on soles. get labs and try gabapenting, follow up as scheduled or sooner for issues. Functional Status Functional Condition Comment Date Status Bifocal glasses Active Independent with all ADL's Activ e Cpap Machine Active Mental Status Mental Condition Comment Date Status None Active Referrals Description No Information Available
--- OUTSIDE RECORDS SUMMARY | 2021-03-03 05:34 | CCD ---
Author Author [facility] Organization [facility] Address Unknown Phone Unavailable Care Team Providers Care Paster Hat Lining Name Role Phone Shanna Bernal MD Unavailable Unavailable Shanna Bernal MD Unavailable Unavailable Shanna Bernal MD Unavailable Unavailable Shanna Bernal MD Unavailable Unavailable Shanna Bernal MD Unavailable Unavailable Shanna Bernal MD Unavailable Unavailable Shanna Bernal MD Unavailable Unavailable Shanna Bernal MD Unavailable Unavailable Shanna Bernal MD Unavailable Unavailable Shanna Bernal MD Unavailable Unavailable Shanna Bernal MD Unavailable Unavailable Shanna Bernal MD Unavailable Unavailable Shanna Bernal MD Unavailable Unavailable Shanna Bernal MD Unavailable Unavailable Shanna Bernal MD Unavailable Unavailable Shanna Bernal MD Unavailable Unavailable Shanna Bernal MD Unavailable Unavailable Shanna Bernal MD Unavailable Unavailable Shanna Bernal MD Unavailable Unavailable Shanna Bernal MD Unavailable Unavailable Shanna Bernal MD Unavailable Unavailable Shanna Bernal MD Unavailable Unavailable Shanna Bernal MD Unavailable Unavailable Shanna Bernal MD Unavailable Unavailable Shanna Bernal MD Unavailable Unavailable Shanna Bernal MD Unavailable Unavailable Shanna Bernal MD Unavailable Unavailable Shanna Bernal MD Unavailable Unavailable Shanna Bernal MD Unavailable Unavailable Shanna Bernal MD Unavailable Unavailable Pushpa Peralta MD Unavailable Unavailable Pushpa Peralta MD Unavailable Unavailable Pushpa Peralta MD Unavailable Unavailable Pushpa Peralta MD Unavailable Unavailable Pushpa Peralta MD Unavailable Unavailable Pushpa Peralta MD Unavailable Unavailable Pushpa Peralta MD Unavailable Unavailable Pushpa Peralta MD Unavailable Unavailable Pushpa Peralta MD Unavailable Unavailable Pushpa Peralta MD Unavailable Unavailable Pushpa Peralta MD Unavailable Unavailable Pushpa Peralta MD Unavailable Unavailable Pushpa Peralta MD Unavailable Unavailable Pushpa Peralta MD Unavailable Unavailable Pushpa Peralta MD Unavailable Unavailable Pushpa Peralta MD Unavailable Unavailable Pushpa Peralta MD Unavailable Unavailable Pushpa Peralta MD Unavailable Unavailable Pushpa Peralta MD Unavailable Unavailable FabianPushpa barraza MD Unavailable Unavailable Pushpa Peralta MD Unavailable Unavailable Pushpa Peralta MD Unavailable Unavailable Pushpa Peralta MD Unavailable Unavailable Pushpa Peralta MD Unavailable Unavailable Pushpa Peralta MD Unavailable Unavailable Pushpa Peralta MD Unavailable Unavailable Pushpa Peralta MD Unavailable Unavailable Pushpa Peralta MD Unavailable Unavailable Pushpa Peralta MD Unavailable Unavailable Pushpa Peralta MD Unavailable Unavailable Pushpa Peralta MD Unavailable Unavailable Pushpa Peralta MD Unavailable Unavailable Pushpa Peralta MD Unavailable Unavailable Pushpa Peralta MD Unavailable Unavailable Pushpa Peralta MD Unavailable Unavailable Pushpa Peralta MD Unavailable Unavailable Pushpa Peralta MD Unavailable Unavailable Pushpa Peralta MD Unavailable Unavailable Pushpa Peralta MD Unavailable Unavailable Pushpa Peralta MD Unavailable Unavailable Pushpa Peralta MD Unavailable Unavailable Pushpa Peralta MD Unavailable Unavailable Pushpa Peralta MD Unavailable Unavailable Pushpa Peralta MD Unavailable Unavailable Pushpa Peralta MD Unavailable Unavailable Pushpa Peralta MD Unavailable Unavailable Pushpa Peralta MD Unavailable Unavailable Pushpa Peralta MD Unavailable Unavailable Pushpa Peralta MD Unavailable Unavailable Pushpa Peralta MD Unavailable Unavailable Petrancosta, [place] Martita PA-C Unavailable Unavailabl e Petrancosta, [place] Martita PA-C Unavailable Unavailabl e Petrancosta, [place] Martita PA-C Unavailable Unavailabl e Petrancosta, [place] Martita PA-C Unavailable Unavailabl e Petrancosta, [place] Martita PA-C Unavailable Unavailabl e Petrancosta, [place] Martita PA-C Unavailable Unavailabl e Petrancosta, [place] Martita PA-C Unavailable Unavailabl e Petrancosta, [place] Martita PA-C Unavailable Unavailabl e Petrancosta, [place] Martita PA-C Unavailable Unavailabl e Petrancosta, [place] Martita PA-C Unavailable Unavailabl e Petrancosta, [place] Martita PA-C Unavailable Unavailabl e Petrancosta, [place] Martita PA-C Unavailable Unavailabl e Petrancosta, [place] Martita PA-C Unavailable Unavailabl e Petrancosta, [place] Martita PA-C Unavailable Unavailabl e Petrancosta, [place] Martita PA-C Unavailable Unavailabl e Petrancosta, [place] Martita PA-C Unavailable Unavailabl e Petrancosta, [place] Martita PA-C Unavailable Unavailabl e Petrancosta, [place] Martita PA-C Unavailable Unavailabl e Petrancosta, [place] Martita PA-C Unavailable Unavailabl e Petrancosta, [place] Martita PA-C Unavailable Unavailabl e Petrancosta, [place] Martita PA-C Unavailable Unavailabl e Petrancosta, [place] Martita PA-C Unavailable Unavailabl e Petrancosta, [place] Martita PA-C Unavailable Unavailabl e Petrancosta, [place] Martita PA-C Unavailable Unavailabl e Petrancosta, [place] Martita PA-C Unavailable Unavailabl e Landon Crowe MD Unavailable Unavailable Landon Crowe MD Unavailable Unavailable Landon Crowe MD Unavailable Unavailable Landon Crowe MD Unavailable Unavailable Landon Crowe MD Unavailable Unavailable Landon Crowe MD Unavailable Unavailable Landon Crowe MD Unavailable Unavailable Landon Crowe MD Unavailable Unavailable Landon Crowe MD Unavailable Unavailable Landon Crowe MD Unavailable Unavailable Landon Crowe MD Unavailable Unavailable Landon Crowe MD Unavailable Unavailable Landon Crowe MD Unavailable Unavailable Landon Crowe MD Unavailable Unavailable Landon Crowe MD Unavailable Unavailable Landon Crowe MD Unavailable Unavailable Landon Crowe MD Unavailable Unavailable Landon Crowe MD Unavailable Unavailable Landon Crowe MD Unavailable Unavailable Landon Crowe MD Unavailable Unavailable Landon Crowe MD Unavailable Unavailable Landon Crowe MD Unavailable Unavailable Landon Crowe MD Unavailable Unavailable Landon Crowe MD Unavailable Unavailable Landon Crowe MD Unavailable Unavailable Landon Crowe MD Unavailable Unavailable Landon Crowe MD Unavailable Unavailable Sebastien, Landon Moss MD Unavailable Unavailable Sebastien, Landon Moss MD Unavailable Unavailable Sebastien, Landon Moss MD Unavailable Unavailable Sebastien, A Isa TOUSSAINT Unavailable Unavailable Sebastien, A Isa TOUSSAINT Unavailable Unavailable Sebastien, A Isa TOUSSAINT Unavailable Unavailable Sebastien, Landon Moss MD Unavailable Unavailable Sebastien, Landon Moss MD Unavailable Unavailable Sebastien, Landon Moss MD Unavailable Unavailable Sebastien, Landon Moss MD Unavailable Unavailable Sebastien, A Isa TOUSSAINT Unavailable Unavailable Sebastien, Landon Moss MD Unavailable Unavailable Sebastien, A Isa TOUSSAINT Unavailable Unavailable Sebastien, A Isa TOUSSAINT Unavailable Unavailable Sebastien, Landon Moss MD Unavailable Unavailable Sebastien, Landon Moss MD Unavailable Unavailable Sebastien, Landon Moss MD Unavailable Unavailable Sebastien, A Isa TOUSSAINT Unavailable Unavailable Sebastien, A Isa TOUSSAINT Unavailable Unavailable Sebastien, A Isa TOUSSAINT Unavailable Unavailable Sebastien, A Isa TOUSSAINT Unavailable Unavailable Sebastien, A Isa TOUSSAINT Unavailable Unavailable Sebastien, A Isa TOUSSAINT Unavailable Unavailable Sebastien, A Isa TOUSSAINT Unavailable Unavailable Sebastien, A Isa TOUSSAINT Unavailable Unavailable Sebastien, A Isa TOUSSAINT Unavailable Unavailable Sebastien, A Isa TOUSSAINT Unavailable Unavailable Sebastien, A Isa TOUSSAINT Unavailable Unavailable Sebastien, A Isa TOUSSAINT Unavailable Unavailable Sebastien, A Isa TOUSSAINT Unavailable Unavailable Sebastien, Landon Moss MD Unavailable Unavailable Sebastien, Landon Moss MD Unavailable Unavailable Sebastien, A Isa TOUSSAINT Unavailable Unavailable Sebastien, A Isa TOUSSAINT Unavailable Unavailable Sebastien, A Isa TOUSSAINT Unavailable Unavailable Sebastien, A Isa TOUSSAINT Unavailable Unavailable Sebastien, A Isa TOUSSAINT Unavailable Unavailable Sebastien, Landon Moss MD Unavailable Unavailable Sebastien, Landon Moss MD Unavailable Unavailable Sebastien, Landon Moss MD Unavailable Unavailable Sebastien, Landon Moss MD Unavailable Unavailable Sebastien, Landon Moss MD Unavailable Unavailable Sebastien, Landon Moss MD Unavailable Unavailable Sebastien, Landon Moss MD Unavailable Unavailable Sebastien, Landon Moss MD Unavailable Unavailable Sebastien, Landon Moss MD Unavailable Unavailable Sebastien, Landon Moss MD Unavailable Unavailable Sebastien, Landon Moss MD Unavailable Unavailable Sebastien, Landon Moss MD Unavailable Unavailable Sebastien, Landon Moss MD Unavailable Unavailable Sebastien, Landon Moss MD Unavailable Unavailable Sebastien, A Isa TOUSSAINT Unavailable Unavailable Sebastien, A Isa TOUSSAINT Unavailable Unavailable Sebastien, Landon Moss MD Unavailable Unavailable Sebastien, Landon Moss MD Unavailable Unavailable Pleskach, Ibeth DIRECTOR PHARMACY SERVICES Unavailable Unavailable Pleskach, Ibeth DIRECTOR PHARMACY SERVICES Unavailable Unavailable Pleskach, Ibeth DIRECTOR PHARMACY SERVICES Unavailable Unavailable Pleskach, Ibeth DIRECTOR PHARMACY SERVICES Unavailable Unavailable Pleskach, Ibeth DIRECTOR PHARMACY SERVICES Unavailable Unavailable Pleskach, Ibeth DIRECTOR PHARMACY SERVICES Unavailable Unavailable Pleskach, Ibeth DIRECTOR PHARMACY SERVICES Unavailable Unavailable Pleskach, Ibeth DIRECTOR PHARMACY SERVICES Unavailable Unavailable Pleskach, Ibeth DIRECTOR PHARMACY SERVICES Unavailable Unavailable Pleskach, Ibeth DIRECTOR PHARMACY SERVICES Unavailable Unavailable Pleskach, Ibeth DIRECTOR PHARMACY SERVICES Unavailable Unavailable Pleskach, Ibeth DIRECTOR PHARMACY SERVICES Unavailable Unavailable Pleskach, Ibeth DIRECTOR PHARMACY SERVICES Unavailable Unavailable Pleskach, Ibeth DIRECTOR PHARMACY SERVICES Unavailable Unavailable Pleskach, Ibeth DIRECTOR PHARMACY SERVICES Unavailable Unavailable Pleskach, Ibeth DIRECTOR PHARMACY SERVICES Unavailable Unavailable Pleskach, Ibeth DIRECTOR PHARMACY SERVICES Unavailable Unavailable Pleskach, Ibeth DIRECTOR PHARMACY SERVICES Unavailable Unavailable Pleskach, Ibeth DIRECTOR PHARMACY SERVICES Unavailable Unavailable Pleskach, Ibeth DIRECTOR PHARMACY SERVICES Unavailable Unavailable Pleskach, Ibeth DIRECTOR PHARMACY SERVICES Unavailable Unavailable Pleskach, Ibeth DIRECTOR PHARMACY SERVICES Unavailable Unavailable Pleskach, Ibeth DIRECTOR PHARMACY SERVICES Unavailable Unavailable Pleskach, Ibeth DIRECTOR PHARMACY SERVICES Unavailable Unavailable Pleskach, Ibeth DIRECTOR PHARMACY SERVICES Unavailable Unavailable Pleskach, Ibeth DIRECTOR PHARMACY SERVICES Unavailable Unavailable Pleskach, Ibeth DIRECTOR PHARMACY SERVICES Unavailable Unavailable Pleskach, Ibeth DIRECTOR PHARMACY SERVICES Unavailable Unavailable Pleskach, Ibeth DIRECTOR PHARMACY SERVICES Unavailable Unavailable Pleskach, Ibeth DIRECTOR PHARMACY SERVICES Unavailable Unavailable Pleskach, Ibeth DIRECTOR PHARMACY SERVICES Unavailable Unavailable Pleskach, Ibeth DIRECTOR PHARMACY SERVICES Unavailable Unavailable Pleskach, Ibeth DIRECTOR PHARMACY SERVICES Unavailable Unavailable Pleskach, Ibeth DIRECTOR PHARMACY SERVICES Unavailable Unavailable Pleskach, Ibeth DIRECTOR PHARMACY SERVICES Unavailable Unavailable Pleskach, Ibeth DIRECTOR PHARMACY SERVICES Unavailable Unavailable Pleskach, Ibeth DIRECTOR PHARMACY SERVICES Unavailable Unavailable Pleskach, Ibeth DIRECTOR PHARMACY SERVICES Unavailable Unavailable Pleskach, Ibeth DIRECTOR PHARMACY SERVICES Unavailable Unavailable Pleskach, Ibeth DIRECTOR PHARMACY SERVICES Unavailable Unavailable Pleskach, Ibeth DIRECTOR PHARMACY SERVICES Unavailable Unavailable Pleskach, Ibeth DIRECTOR PHARMACY SERVICES Unavailable Unavailable Re-disclosure Warning The records that you are about to access may contain information from federally-assisted alcohol or drug abuse programs. If such information is present, then the following federally mandated warning applies: This information has been disclosed to you from records protected by federal confidentiality rules (42 CFR part 2). The federal rules prohibit you from making any further disclosure of this information unless further disclosure is expressly permitted by the written consent of the person to whom it pertains or as otherwise permitted by 42 CFR part 2. A general authorization for the release of medical or other information is NOT sufficient for this purpose. The Federal rules restrict any use of the information to criminally investigate or prosecute any alcohol or drug abuse patient.The records that you are about to access may contain highly sensitive health information, the redisclosure of which is protected by Article 27-F of the [facility] Public Health law. If you continue you may have access to information: Regarding HIV / AIDS; Provided by facilities licensed or operated by the [facility] Office of Mental Health; or Provided by the [facility] Office for People With Developmental Disabilities. If such information is present, then the following [facility] mandated warning applies: This information has been disclosed to you from confidential records which are protected by state law. State law prohibits you from making any further disclosure of this information without the specific written consent of the person to whom it pertains, or as otherwise permitted by law. Any unauthorized further disclosure in violation of state law may result in a fine or custodial sentence or both. A general authorization for the release of medical or other information is NOT sufficient authorization for further disc losure. Family History Family Member Name Family Member Gender Family Member Status Date o f Status Description Data Source(s) Unknown Unknown Problem [facility] ([facility] Mother was able to quit drinking. Unknown Unknown Problem [facility] ([facility]) mother Unknown Female Problem [facility] ([facility]) Unknown Female Problem [facility] ([facility]) Encounters Encounter Providers Location Date Indications Data Source(s ) Outpatient Attender: Isa Crowe MD Main Office 01/14/2021 08:15:0 0 AM EDT [facility] ([facility] Outpatient Attender: Shanna Castellano/Kat/Emmanuel/Luis Alfredo nd 10/05/2020 08:30:00 AM EDT [facility] ([facility] Outpatient Attender: Isa Crowe MD Main Office 09/30/2020 08:15:0 0 AM EDT [facility] ([facility] Outpatient Attender: Payam Peralta MD Main Office 07/20/2020 08:45:00 AM EST [facility] ([facility]) Outpatient Attender: Ibeth Gracia [facility] Main Office 07/14/2020 1 2:45:00 PM EST [facility] ([facility] Outpatient Attender: Isa Crowe MD Main Office 06/15/2020 07:30:0 0 AM EST [facility] ([facility] Outpatient Attender: Martita Robin PA-C Main Office 05/27/2020 02:00:00 PM EST [facility] ([facility] Outpatient Attender: Isa Crowe MD Main Office 03/29/2020 06:45:0 0 AM EST [facility] ([facility] Immunizations Vaccine Date Status Description Data Source(s) Pfizer-Sars-(Covid-19) vaccine, mRNA, LNP-S, PF, 30 mc g/ 0.3 mL 08/04/2020 12:00:00 AM EDT completed [facility] ([facility] COVID-19 VACCINE Pfizer 08/04/2020 12:00:00 AM EDT completed [facility] Vaccine Series Complete: YESThis Data wa s Submitted to [facility] [place]. Pfizer-Sars-(Covid-19) vaccine, mRNA, LNP-S, PF, 30 mc g/ 0.3 mL 07/14/2020 12:52:00 PM EST completed [facility] COVID-19 VACCINE Pfizer 07/14/2020 12:00:00 AM EST completed [facility] Vaccine Series Complete: NOThis Data was Submitted to [facility] [place]. New in 2012. IIV4 03/29/2020 06:51:00 AM EST completed [facility] ([facility] Medications Medication Brand Name Start Date Product Form Dose Route Admi nistrative Instructions Pharmacy Instructions Status Indications Reaction Description Data Source(s) 300 mg 09/30/2020 12:00:00 AM EDT capsule 60 TAKE ONE CAPSULE BY MOUTH THREE TIMES A DAY NEEDED FOR PAIN IN FEET TAKE ONE CAPSULE BY MOUTH THREE TIMES A DAY NEEDED FOR PAIN IN FEET SOLD: 10/01/2020 [facility] gabapentin 300 MG Oral Capsule Gabapentin 09/30/2020 12:00:00 AM EDT ORAL active [facility] ([facility] Sutab Sutab 07/20/2020 12:00:00 AM EST active [facility] ([facility]) 1.479-0.188 gram 07/20/2020 12:00:00 AM EST tablet 24 DIRECTED DIRECTED SOLD: 07/22/2020 [facility] 875 mg 05/27/2020 12:00:00 AM EST tablet 14 TAKE ONE TABLET BY MOUTH TWICE A DAY TAKE ONE TABLET BY MOUTH TWICE A DAY SOLD: 05/29/2020 [facility] Amoxicillin 875 MG Oral Tablet Amoxicillin 05/27/2020 12:00:00 AM EST ORAL completed [facility] 50 mg 05/27/2020 12:00:00 AM EST tablet 90 TAKE ONE TABLET BY MOUTH EVERY DAY TAKE ONE TABLET BY MOUTH EVERY DAY SOLD: 05/29/2020 [facility] 50 mg 04/09/2020 12:00:00 AM EST tablet extended release 24 hr 90 TAKE ONE TABLET BY MOUTH EVERY DAY TAKE ONE TABLET BY MOUTH EVERY DAY SOLD: 07/07/2020 [facility] 50 mg 04/09/2020 12:00:00 AM EST tablet extended release 24 hr 90 TAKE ONE TABLET BY MOUTH EVERY DAY TAKE ONE TABLET BY MOUTH EVERY DAY SOLD: 04/11/2020 [facility] 50 mg 04/09/2020 12:00:00 AM EST tablet extended release 24 hr 90 TAKE ONE TABLET BY MOUTH EVERY DAY TAKE ONE TABLET BY MOUTH EVERY DAY SOLD: 10/20/2020 [facility] 50 mg 04/09/2020 12:00:00 AM EST tablet extended release 24 hr 90 TAKE ONE TABLET BY MOUTH EVERY DAY TAKE ONE TABLET BY MOUTH EVERY DAY SOLD: 02/09/2021 [facility] 200 mcg 04/07/2020 12:00:00 AM EST tablet 90 TAKE ONE TABLET BY MOUTH EVERY DAY TAKE ONE TABLET BY MOUTH EVERY DAY SOLD: 12/27/2020 [facility] atorvastatin 10 MG Oral Tablet ATORVASTATIN CALCIUM 04/07/2020 1 2:00:00 AM EST tablet 90 TAKE ONE TABLET BY MOUTH EVERY D AY TAKE ONE TABLET BY MOUTH EVERY DAY SOLD: 12/27/2020 [facility] 200 mcg 04/07/2020 12:00:00 AM EST tablet 90 TAKE ONE TABLET BY MOUTH EVERY DAY TAKE ONE TABLET BY MOUTH EVERY DAY SOLD: 04/07/2020 [facility] atorvastatin 10 MG Oral Tablet ATORVASTATIN CALCIUM 04/07/2020 1 2:00:00 AM EST tablet 90 TAKE ONE TABLET BY MOUTH EVERY D AY TAKE ONE TABLET BY MOUTH EVERY DAY SOLD: 04/07/2020 [facility] 200 mcg 04/07/2020 12:00:00 AM EST tablet 90 TAKE ONE TABLET BY MOUTH EVERY DAY TAKE ONE TABLET BY MOUTH EVERY DAY SOLD: 08/26/2020 [facility] atorvastatin 10 MG Oral Tablet ATORVASTATIN CALCIUM 04/07/2020 1 2:00:00 AM EST tablet 90 TAKE ONE TABLET BY MOUTH EVERY D AY TAKE ONE TABLET BY MOUTH EVERY DAY SOLD: 08/26/2020 [facility] Insurance Providers Payer name Policy type / Coverage type Policy ID Covered libertarian ID Covered libertarian's relationship to gagnon Policy [place] Plan Information BCBS E[place]IRE [place] DIV [id number] SP [id number] BCBS EMPIRE [place] DIV [id number] SP [id number] BCBS EMPIRE [place] DIV [id number] SP [id number] [facility] [id number] SP [id number] BCBS EMPIRE QIANA DIV [id number] SP [id number] EMPIRE PLAN [facility] U [id number] Self [id number] [place] Plan F [id number] Emp/[employer] Commercial [id number] Self [id number] Emp/[employer] Commercial [id number] Self [id number] Emp/[employer] Commercial [id number] Self [id number] [employer] [place] Commercial [id number] Self [id number] Emp/[employer] Commercial [id number] Self [id number] Emp/[employer] Commercial [id number] Self [id number] [employer] [place] [employer] [id number] Self [id number] Emp/[employer] Commercial [id number] Self [id number] Emp/[employer] Commercial [id number] Self [id number] Emp/[employer] [id number] Self [id number] [employer] [place] Commercial [id number] Self Emp/[employer] Commercial [id number] Self EMPIRE (STATE EMP) O [id number] S [id number] UNITED HEALTHCARE [id number] SP [id number] BCBS EMPIRE [place] DIV [id number] SP [id number] SELF PAY ONLY [id number] SP [id number] [facility] Health Maintenance Organization (HMO) [id number] Self Problems, Conditions, and Diagnoses Code Display Name Description Problem Type Effective Dates Data Source(s) G47.33 Obstructive sleep apnea syndrome Obstructive sle ep apnea syndrome Problem 07/14/2020 12:00:00 AM EST [facility] ([facility] I10 Essential hypertension Essential hypertension Problem 07/14/2020 12:00:00 AM EST [facility] ([facility] E03.9 Hypothyroidism Hypothyroidism Problem 07/14/2020 12:00: 00 AM EST [facility] ([facility] Surgeries/Procedures Procedure Description Date Indications Data Source(s) OFFICE OUTPATIENT VISIT 25 MINUTES 01/14/2021 12:00:00 AM EDT [facility] ([facility] OFFICE OUTPATIENT VISIT 25 MINUTES 09/30/2020 12:00:00 AM EDT [facility] ([facility] UPPER NDSC BIOPSY SINGLE/MULTIPLE 07/27/2020 12:00:00 AM EDT [facility] ([facility]) COLONOSCOPY FLX DX W/WO COLLJ SPECIMENS 07/27/2020 12: 00:00 AM EDT [facility] ([facility]) OFFICE OUTPATIENT VISIT 25 MINUTES 07/14/2020 12:00:00 AM EST [facility] Results ID Date Data Source [id number] 01/12/2021 03:39:00 PM EDT [facility] ([facility] Name Value Range Interpretation Code Description Data Echo rce(s) Supporting Document(s) Thyrotropin [Units/volume] in Serum or Plasma 2.010 uIU/ML 0.358-3.74 0 [facility] ([facility] Thyroxine (T4) free [Mass/volume] in Serum or Plasma 1.21 ng/dL 0.76- 1.46 [facility] ([facility] ID Date Data Source [id number] 01/12/2021 03:39:00 PM EDT [facility] ([facility] Name Value Range Interpretation Code Description Data Echo rce(s) Supporting Document(s) Triglycerides Level 122 mg/dL [facility] ([facility] LDL Cholesterol 66 mg/dL [facility] HDL Cholesterol 33 mg/dL [facility] Cholesterol Level 123 mg/dL [facility] ([facility] Non-HDL-C 90 mg/dL [facility] Cholesterol Risk Ratio 3.727 [facility] ([facility] ID Date Data Source [id number] 01/12/2021 03:39:00 PM EDT [facility] ([facility] Name Value Range Interpretation Code Description Data Echo rce(s) Supporting Document(s) Glucose, Fasting 87 mg/dL 70-100 [facility] ([facility] Blood Urea Nitrogen 14 mg/dL 7-18 [facility] ([facility] Creatinine For GFR 1.02 mg/dL 0.70-1.30 [facility] ([facility] Sodium Level 141 meq/L 136-145 [facility] Glomerular Filtration Rate Laboratory test result [facility] ([facility] <content>Units are mL/min/1.73 m2</content>
<content></content>
<content>Chronic Kidney Disease Staging per NKF:</content>
<content></content>
<content>Stage I & II GFR >=60 Normal to Mildly Decreased</content>
<content>Stage III GFR 30- 59 Moderately Decreased</content>
<content>Stage IV GFR 15-29 Severely Decreased</content>
<content>Stage V GFR <15 Very Little GFR Left</content>
<content>ESRD GFR <15 on ENGINEERING DRAWINGS CHECKER</content>
<content></content> Chloride Level 108 meq/L 98-107 [facility] ([facility] Potassium Serum 4.0 meq/L 3.5-5.1 [facility] ([facility] Carbon Dioxide Level 30 meq/L 21-32 [facility] ([facility] Anion Gap 3 meq/L 8-16 [facility] Calcium Level 8.5 mg/dL 8.8-10.2 [facility] ([facility] Alkaline Phosphatase 79 U/L 45-117 [facility] Alt/SGPT 26 U/L 12-78 [facility] Ast/Sgot 13 U/L 7-37 [facility] Total Protein 7.2 GM/DL 6.4-8.2 [facility] ([facility] Bilirubin,Total 0.6 mg/dL 0.2-1.0 [facility] ([facility] Albumin/Globulin Ratio 1.1 [facility] ([facility] Albumin 3.7 GM/DL 3.2-5.2 [facility] ([facility] ID Date Data Source [id number] 09/30/2020 09:28:00 AM EDT [facility] ([facility] Name Value Range Interpretation Code Description Data Echo rce(s) Supporting Document(s) Estimated Average Glucose 111 mg/dL 60-110 [facility] ([facility] Hemoglobin A1c/Hemoglobin.total in Blood 5.5 % [facility] ([facility] <content>REFERENCE RANGES:</content><br/ ><content></content>
<content><=5.6% NORMAL</content>
<content>5.7-6.4% SUGGESTS IMPAIRED GLUCOSE METABOLISM/PREDIABETIC</content>
<content>>= 6.5% ABNORMAL</content>
<content></content> ID Date Data Source [id number] 09/30/2020 09:28:00 AM EDT [facility] ([facility] Name Value Range Interpretation Code Description Data Echo rce(s) Supporting Document(s) Thyroxine (T4) free [Mass/volume] in Serum or Plasma 1.02 ng/dL 0.76- 1.46 [facility] ([facility] Thyrotropin [Units/volume] in Serum or Plasma 2.750 uIU/ML 0.358-3.74 0 [facility] ([facility] ID Date Data Source [id number] 09/30/2020 09:28:00 AM EDT [facility] ([facility] Name Value Range Interpretation Code Description Data [facility](s) Supporting Document(s) Blood Urea Nitrogen 18 mg/dL 7-18 [facility] ([facility] Glucose, Fasting 91 mg/dL 70-100 [facility] ([facility] Creatinine For GFR 0.93 mg/dL 0.70-1.30 [facility] ([facility] Glomerular Filtration Rate Laboratory test result [facility] ([facility] <content>Units are mL/min/1.73 m2</content>
<content></content>
<content>Chronic Kidney Disease Staging per NK[facility]:</content>
<content></content>
<content>Stage I & II GFR >=60 Normal to Mildly Decreased</content>
<content>Stage III GFR 30- 59 Moderately Decreased</content>
<content>Stage IV GFR 15-29 Severely Decreased</content>
<content>Stage V GFR <15 Very Little GFR Left</content>
<content>ESRD GFR <15 on ENGINEERING DRAWINGS CHECKER</content>
<content></content> Sodium Level 139 meq/L 136-145 [facility] ([facility] Potassium Serum 4.3 meq/L 3.5-5.1 [facility] ([facility] Chloride Level 107 meq/L 98-107 [facility] ([facility] Carbon Dioxide Level 27 meq/L 21-32 [facility] ([facility] Anion Gap 5 meq/L 8-16 [facility] ([facility] Ast/Sgot 19 U/L 7-37 [facility] ([facility] Calcium Level 8.0 mg/dL 8.5-10.1 [facility] ([facility] Alkaline Phosphatase 96 U/L 45-117 [facility] ([facility] Alt/SGPT 30 U/L 12-78 [facility] ([facility] Total Protein 7.5 GM/DL 6.4-8.2 [facility] ([facility] Bilirubin,Total 0.6 mg/dL 0.2-1.0 [facility] ([facility] Albumin/Globulin Ratio 1.0 [facility] ([facility] Albumin 3.8 GM/DL 3.2-5.2 [facility] ([facility] ID Date Data Source [id number] 09/30/2020 09:28:00 AM EDT [facility] ([facility] Name Value Range Interpretation Code Description Data Echo rce(s) Supporting Document(s) Antinuclear Antibodies Direct Laboratory test result [facility] ([facility] Performed at: RN - [facility] [address] [id number] Bioinformaticist: Yina Iverson MD, Phone: [phone] ID Date Data Source [id number] 09/30/2020 09:28:00 AM EDT [facility] ([facility] Name Value Range Interpretation Code Description Data Echo rce(s) Supporting Document(s) Calcidiol [Mass/volume] in Serum or Plasma 20.3 ng/mL 30.0-100.0 [facility] ([facility] ID Date Data Source [id number] 09/30/2020 09:28:00 AM EDT [facility] ([facility] Name Value Range Interpretation Code Description Data Echo rce(s) Supporting Document(s) Vitamin B12 Level 345 pg/mL [facility] ([facility] VITAMIN B12 NORMAL RANGE NORMAL 247 - 911 PG/ML INDETERMINATE 211 - 246 PG/ML DEFICIENT LESS THAN 211 PG/ML Folate 9.2 ng/mL [facility] ([facility] FOLATE NORMAL RANGE NORMAL GREATER THAN 5.4 NG/ML INDETERMINATE 3.4-5.4 NG/ML DEFICIENT LESS THAN 3.4 NG/ML ID Date Data Source [id number] 07/27/2020 08:30:00 AM EDT [facility] ([facility]) Name Value Range Interpretation Code Description Data Echo rce(s) Supporting Document(s) Surgical pathology study Laboratory test result [facility] ([facility]) FINAL DIAGNOSIS A-Stomach, antrum, biopsy: Gastric mucosa with minimal chronic inflammation and reactive changes. No H.pylori is identified. B-Esophagus, below z-line, biopsy: Squamocolumnar junction mucosa with mild inflammation and reparative changes. No intestinal metaplasia seen. 07/28/2020 - 1403 CLINICAL DIAGNOSIS Heartburn, exclude intestinal metaplasia, family H/O colonic polyps, grandparents H/O colon CA 07/27/2020 - 1445 GROSS DIAGNOSIS A - Received in formalin labeled "biopsy antrum R/O H. pylori" and consists of a fragment of tissue 0.2 x 0.2 x 0.1 cm. All in one. B - Received in formalin labeled "biopsy below Z line R/O Jacob's" and consists of fragments of tissue 0.3 x 0.2 x 0.1 cm. All in one. -OA 07/27/2020 - 1445 Signed LUZ MARIA DAMON MD 07/28/2020 1404 ID Date Data Source [id number] 07/22/2020 09:45:00 AM EST [facility] Name Value Range Interpretation Code Description Data Echo rce(s) Supporting Document(s) SARS coronavirus 2 RNA Not Detected [facility] [place] This lab was ordered by [facility] and reported by [facility]. ID Date Data Source [id number] 07/12/2020 11:06:00 AM EST [facility] ([facility] Name Value Range Interpretation Code Description Data Echo rce(s) Supporting Document(s) Thyroxine (T4) free [Mass/volume] in Serum or Plasma 1.16 ng/dL 0.76- 1.46 [facility] ([facility] Thyrotropin [Units/volume] in Serum or Plasma 4.840 uIU/ML 0.358-3.74 0 [facility] ([facility] ID Date Data Source [id number] 06/15/2020 12:00:00 AM EST [facility] MD Patient Name: KALI SEGAL [id number] [address] Date of : 1960[place] [address] Date of Exam: 06/15/2020#: Fax: [phone] EXAM: CT ABDOMEN & PELVIS WITHOUT CONTRASTCLINICAL INFORMATION: Stone protocol. Right-sided abdominal pain.Comparison 04/10/2007.Low dose [address] scanning of the abdomen and pelvis wasobtained without the administration of intravenous contrast.The visualized lung bases are clear.The liver, spleen, adrenals, pancreas and kidneys are grossly unremarkable. I see no evidence of renal, ureteral or bladder calculus. There is nohydroureteronephrosis. The abdominal aorta is normal in caliber with noaneurysm. There are mild atherosclerotic calcifications. No adenopathy isseen in the abdomen or pelvis. No gross bladder abnormality is seen. Nobowel wall thickening is seen. The appendix is normal. There is a smallhiatal hernia. There is no free air or free fluid. The previously notedbone lesion in the right femoral head and neck appears unchanged. Thereare mild degenerative changes of the spine without compression deformity.IMPRESSION:Small hiatal hernia. No acute abnormalities identified. No renal,ureteral or bladder calculus. No hydroureteronephrosis. Normal appendix.Accredited by the [employer] in [place].KATELYN Montilla/Brandon you for referring KALI SEGAL to our office. Electronically Signed - LEYDA ARIAS MD 06/15/20 16:44 Name Value Range Interpretation Code Description Data Echo rce(s) Supporting Document(s) ID Date Data Source [id number] 06/15/2020 08:46:00 AM EST [facility] ([facility] Name Value Range Interpretation Code Description Data Echo e(s) Supporting Document(s) Bacteria identified in Urine by Culture Laboratory test result [facility] ([facility] FULL REPORT IN LAB NOTES ([facility] and [facility] ). NO GROWTH ID Date Data Source [id number] 06/15/2020 08:38:00 AM EST [facility] ([facility] Name Value Range Interpretation Code Description Data Echo rce(s) Supporting Document(s) Specific gravity of Urine 1.025 MEDE NT ([facility] pH of Urine by Test strip 5.0 [facility] NT ([facility] Appearance of Urine Laboratory test result [facility] ([facility] Color of Urine Laboratory test result [facility] ([facility] Leukocytes [#/area] in Urine sediment by Microscopy hi power field Laboratory test result [facility] ([facility] Protein [Presence] in Urine by Test strip Laboratory test result [facility] ([facility] Glucose [Presence] in Urine Laboratory test result [facility] ([facility] Bilirubin.total [Presence] in Urine by Test strip Laboratory test res ult [facility] ([facility] Urobilinogen [Mass/volume] in Urine by Test strip Laboratory test res ult [facility] ([facility] Ketones [Presence] in Urine by Test strip Laboratory test result [facility] ([facility] Hemoglobin [Presence] in Urine by Test strip Laboratory test result [facility] ([facility] Nitrite [Presence] in Urine by Test strip Laboratory test result [facility] ([facility] ID Date Data Source [id number] 05/01/2020 12:00:00 AM EST [facility] Name Value Range Interpretation Code Description Data Echo rce(s) Supporting Document(s) SARS-CoV-2 (COVID-19) RNA [Presence] in Respiratory specimen by [place] with probe detection [facility] This lab was ordered by [facility] and reported by [facility]. ID Date Data Source [id number] 03/26/2020 12:10:00 PM EST [facility] ([facility] Name Value Range Interpretation Code Description Data Echo rce(s) Supporting Document(s) Thyrotropin [Units/volume] in Serum or Plasma 7.940 uIU/ML 0.358-3.74 0 [facility] ([facility] Thyroxine (T4) free [Mass/volume] in Serum or Plasma 0.99 ng/dL 0.76- 1.46 [facility] ([facility] ID Date Data Source [id number] 03/26/2020 12:10:00 PM EST [facility] ([facility] Name Value Range Interpretation Code Description Data Echo rce(s) Supporting Document(s) Triglycerides Level 225 mg/dL [facility] ([facility] Cholesterol Level 147 mg/dL [facility] ([facility] HDL Cholesterol 34 mg/dL [facility] ([facility] LDL Cholesterol 68 mg/dL [facility] ([facility] Non-HDL-C 113 mg/dL [facility] ([facility] Cholesterol Risk Ratio 4.323 [facility] ([facility] ID Date Data Source [id number] 03/26/2020 12:10:00 PM EST [facility] ([facility] Name Value Range Interpretation Code Description Data Echo e(s) Supporting Document(s) Red Blood Count 4.76 10 4.30-6.10 [facility] ([facility] White Blood Count 9.0 10 4.0-10.0 [facility] ([facility] Hemoglobin 14.2 g/dL 13.5-17.5 [facility] ([facility] Hematocrit 43.1 % 42.0-52.0 [facility] ([facility] Mean Corpuscular Volume 90.5 fl 80.0-96.0 M EDENT ([facility] Mean Corpuscular Hemoglobin 29.8 pg 27.0-33.0 [facility] ([facility] Mean Corpuscular HGB Conc 32.9 g/dL 32.0-36.5 [facility] ([facility] Platelet Count, Automated 212 10 150-450 [facility] ([facility] Red Cell Distribution Width 12.1 % 11.5-14.5 [facility] ([facility] Lymph % 31.6 % 24.0-44.0 [facility] ([facility] Neutrophils % 54.5 % 36.0-66.0 [facility] ([facility] Eos % 1.4 % 0.0-3.0 [facility] ([facility] [place] % 11.0 % 0.0-5.0 [facility] ([facility] Baso % 0.8 % 0.0-1.0 [facility] ([facility] Immature Granulocyte % 0.7 % 0-3.0 [facility] ([facility] Neutrophils # 4.9 10 1.5-8.5 [facility] ([facility] Nucleated Red Blood Cell % 0.0 % 0-0 MED [facility] ([facility] Eos # 0.1 10 0.0-0.5 [facility] ([facility] Lymph # 2.8 10 1.5-5.0 [facility] ([facility] [place] # 1.0 10 0.0-0.8 [facility] ([facility] Baso # 0.1 10 0.0-0.2 [facility] ([facility] ID Date Data Source [id number] 03/26/2020 12:10:00 PM EST [facility] ([facility] Name Value Range Interpretation Code Description Data Echo rce(s) Supporting Document(s) Glucose, Fasting 90 mg/dL 70-100 [facility] ([facility] Creatinine For GFR 1.06 mg/dL 0.70-1.30 [facility] ([facility] Blood Urea Nitrogen 17 mg/dL 7-18 [facility] ([facility] Sodium Level 137 meq/L 136-145 [facility] ([facility] Glomerular Filtration Rate Laboratory test result [facility] ([facility] <content>Units are mL/min/1.73 m2</content>
<content></content>
<content>Chronic Kidney Disease Staging per [facility]:</content>
<content></content>
<content>Stage I & II GFR >=60 Normal to Mildly Decreased</content>
<content>Stage III GFR 30- 59 Moderately Decreased</content>
<content>Stage IV GFR 15-29 Severely Decreased</content>
<content>Stage V GFR <15 Very Little GFR Left</content>
<content>ESRD GFR <15 on ENGINEERING DRAWINGS CHECKER</content>
<content></content> Potassium Serum 4.4 meq/L 3.5-5.1 [facility] ([facility] Carbon Dioxide Level 31 meq/L 21-32 [facility] ([facility] Anion Gap 3 meq/L 8-16 [facility] ([facility] Chloride Level 103 meq/L 98-107 [facility] ([facility] Ast/Sgot 22 U/L 7-37 [facility] ([facility] Alt/SGPT 43 U/L 12-78 [facility] ([facility] Calcium Level 8.7 mg/dL 8.5-10.1 [facility] ([facility] Total Protein 7.5 GM/DL 6.4-8.2 [facility] ([facility] Alkaline Phosphatase 74 U/L 45-117 [facility] ([facility] Bilirubin,Total 0.4 mg/dL 0.2-1.0 [facility] ([facility] Albumin/Globulin Ratio 1.0 [facility] ([facility] Albumin 3.7 GM/DL 3.2-5.2 [facility] ([facility] Procedure Social History Code Duration Value Status Description Data Source(s ) Smoking 01/14/2021 12:00:00 AM EDT Never Smoked Cigarettes com pleted Never Smoked Cigarettes [facility] ([facility] Smoking 10/05/2020 12:00:00 AM EDT Never Smoked Cigarettes com pleted Never Smoked Cigarettes [facility] ([facility], ) Vital Signs ID Date Data Source [id number] Name Value Range Interpretation Code Description Data Source(s) Systolic blood pressure 139 mm[Hg] 139 mm[Hg] M [facility] ([facility] Diastolic blood pressure 80 mm[Hg] 80 mm[Hg] [facility] ([facility] Heart rate 55 /min 55 /min [facility] ([facility] Body temperature 97.1 [degF] 97.1 [degF] [facility] ([facility] Respiratory rate 18 /min 18 /min [facility] ( [facility] Body height 69.25 [in_i] 69.25 [in_i] [facility] ([facility] 5'9.25" Body weight 271.12 [lb_av] 271.12 [lb_av] [facility] T ([facility] Oxygen saturation in Arterial blood by Pulse oximetry 98 % 98 % [facility] ([facility] [place] body weight 160 [lb_av] 160 [lb_av] [facility] T ([facility] Body mass index (BMI) [Ratio] 39.7 kg/m2 39.7 k g/m2 [facility] ([facility] Systolic blood pressure 132 mm[Hg] 132 mm[Hg] EDENT ([facility], ) Diastolic blood pressure 76 mm[Hg] 76 mm[Hg] [facility] ([facility]) Heart rate 62 /min 62 /min [facility] ([facility]) Oxygen saturation in Arterial blood by Pulse oximetry 98 % 98 % [facility] ([facility]) Body temperature 97.2 [degF] 97.2 [degF] [facility] ([facility]) Body height 69 [in_i] 69 [in_i] [facility] ([facility]) 5'9" Body weight 273.25 [lb_av] 273.25 [lb_av] MED[facility] T ([facility]) Body mass index (BMI) [Ratio] 40.3 kg/m2 40.3 k g/m2 [facility] ([facility]) [place] body weight 160 [lb_av] 160 [lb_av] MED[facility] T ([facility]) Body weight 123.946 kg 123.946 kg [facility] ([facility]) Body surface area Derived from formula 2.36 m2 2.36 m2 [facility] ([facility]) Oxygen saturation in Arterial blood by Pulse oximetry 98 % 98 % [facility] ([facility] Systolic blood pressure 136 mm[Hg] 136 mm[Hg] M [facility]ENT ([facility] Diastolic blood pressure 70 mm[Hg] 70 mm[Hg] [facility] ([facility] Heart rate 63 /min 63 /min [facility] ([facility] Body temperature 96.8 [degF] 96.8 [degF] [facility] ([facility] Body height 69.25 [in_i] 69.25 [in_i] [facility] ([facility] 5'9.25" Body weight 274.12 [lb_av] 274.12 [lb_av] [facility] T ([facility] [place] body weight 160 [lb_av] 160 [lb_av] [facility] T ([facility] Body mass index (BMI) [Ratio] 40.2 kg/m2 40.2 k g/m2 [facility] ([facility] Respiratory rate 16 /min 16 /min [facility] ( [facility] Body height 69 [in_i] 69 [in_i] [facility] ([facility]) 5'9" Body mass index (BMI) [Ratio] 42.4 kg/m2 42.4 k g/m2 [facility] ([facility]) Body weight 287.00 [lb_av] 287.00 [lb_av] MEDEN T ([facility]) Systolic blood pressure 130 mm[Hg] 130 mm[Hg] M EDENT ([facility]) Diastolic blood pressure 79 mm[Hg] 79 mm[Hg] [facility] ([facility]) Heart rate 64 /min 64 /min [facility] ([facility]) Body weight 130.183 kg 130.183 kg [facility] Body temperature 97.2 [degF] 97.2 [degF] [facility] ([facility]) Systolic blood pressure 135 mm[Hg] 135 mm[Hg] M [facility]ENT ([facility] Diastolic blood pressure 63 mm[Hg] 63 mm[Hg] [facility] ([facility] Heart rate 63 /min 63 /min [facility] ([facility] Body temperature 96.8 [degF] 96.8 [degF] [facility] ([facility] Respiratory rate 17 /min 17 /min [facility] ( [facility] Body height 69.25 [in_i] 69.25 [in_i] [facility] ([facility] 5'9.25" Body weight 284.38 [lb_av] 284.38 [lb_av] MED[facility] T ([facility] Oxygen saturation in Arterial blood by Pulse oximetry 98 % 98 % [facility] ([facility] [place] body weight 160 [lb_av] 160 [lb_av] MED[facility] T ([facility] Body mass index (BMI) [Ratio] 41.7 kg/m2 41.7 k g/m2 [facility] ([facility] Body weight 284.38 [lb_av] 284.38 [lb_av] MED[facility] T ([facility] Body mass index (BMI) [Ratio] 41.7 kg/m2 41.7 k g/m2 [facility] ([facility] Body height 69.25 [in_i] 69.25 [in_i] [facility] ([facility] 5'9.25" Systolic blood pressure 153 mm[Hg] 153 mm[Hg] M EDENT ([facility] Diastolic blood pressure 73 mm[Hg] 73 mm[Hg] [facility] ([facility] Systolic blood pressure 140 mm[Hg] 140 mm[Hg] M EDENT ([facility] Diastolic blood pressure 75 mm[Hg] 75 mm[Hg] [facility] ([facility] Heart rate 69 /min 69 /min [facility] ([facility] Body temperature 97.0 [degF] 97.0 [degF] [facility] ([facility] Respiratory rate 18 /min 18 /min [facility] ( [facility] Oxygen saturation in Arterial blood by Pulse oximetry 98 % 98 % [facility] ([facility] [place] body weight 160 [lb_av] 160 [lb_av] MED[facility] T ([facility] Body height 69.25 [in_i] 69.25 [in_i] [facility] ([facility] 5'9.25" Systolic blood pressure 123 mm[Hg] 123 mm[Hg] M EDENT ([facility] Diastolic blood pressure 85 mm[Hg] 85 mm[Hg] [facility] ([facility] Heart rate 83 /min 83 /min [facility] ([facility] Body temperature 96.4 [degF] 96.4 [degF] [facility] ([facility] Respiratory rate 15 /min 15 /min [facility] ( [facility] Body weight 285.12 [lb_av] 285.12 [lb_av] MEDEN T ([facility] Oxygen saturation in Arterial blood by Pulse oximetry 97 % 97 % [facility] ([facility] [place] body weight 160 [lb_av] 160 [lb_av] MED[facility] T ([facility] Body mass index (BMI) [Ratio] 41.8 kg/m2 41.8 k g/m2 [facility] ([facility] Diastolic blood pressure 78 mm[Hg] 78 mm[Hg] [facility] ([facility] Systolic blood pressure 138 mm[Hg] 138 mm[Hg] M EDENT ([facility] Systolic blood pressure 140 mm[Hg] 140 mm[Hg] M EDENT ([facility] Respiratory rate 18 /min 18 /min [facility] ( [facility] Heart rate 62 /min 62 /min [facility] ([facility] Diastolic blood pressure 80 mm[Hg] 80 mm[Hg] [facility] ([facility] Oxygen saturation in Arterial blood by Pulse oximetry 95 % 95 % [facility] ([facility] [place] body weight 160 [lb_av] 160 [lb_av] MEDEN T ([facility] Body mass index (BMI) [Ratio] 41.4 kg/m2 41.4 k g/m2 [facility] ([facility] Body temperature 97.3 [degF] 97.3 [degF] [facility] ([facility] Body height 69.25 [in_i] 69.25 [in_i] [facility] ([facility] 5'9.25" Body weight 282.25 [lb_av] 282.25 [lb_av] MEDEN T ([facility] Body height 69 [in_i] 69 [in_i] [facility] ([facility], ) 5'9" Body weight 279.12 [lb_av] 279.12 [lb_av] [facility] Systolic blood pressure 122 mm[Hg] 122 mm[Hg] [facility] Body mass index (BMI) [Ratio] 41.2 kg/m2 41.2 k g/m2 [facility] ([facility]) Diastolic blood pressure 80 mm[Hg] 80 mm[Hg] [facility] ([facility]) [place] body weight 160 [lb_av] 160 [lb_av] MED[facility] T ([facility]) Heart rate 59 /min 59 /min [facility] ([facility]) Body weight 126.611 kg 126.611 kg [facility] ([facility]) Body surface area Derived from formula 2.38 m2 2.38 m2 [facility] ([facility]) Oxygen saturation in Arterial blood by Pulse oximetry 99 % 99 % [facility] ([facility]) Body temperature 96.7 [degF] 96.7 [degF] [facility] ([facility])
[2021-03-03] MEDS ORDERED: KETOROLAC 30 MG/ML 1ML VIAL IV ONE (06:40)
[2021-03-03] MEDS ORDERED: NAPR-837 PO (07:26)
[2021-03-03 07:47] VITALS: BP 181/100
--- NOTE | 2021-03-03 19:02 | ECGEPIP ---
[facility] - ED Test Date: 2021-03-03 Pat Name: KALI SEGAL Department: Room: - Gender: Male [employer] I Manager: ED : 1960 Requested By: Colton Quach Order Number: [id number] Reading MD: Yoli Lerner Measurements Intervals [place] Rate: 71 P: 25 [place]: 152 QRS: -7 QRSD: 84 T: 12 QT: 384 QTc: 417 Interpretive Statements Normal sinus rhythm Nonspecific T wave abnormality No prior Electronically Signed on 03-03-2021 19:01:56 EDT by Yoli Lerner
--- NOTE | 2021-03-03 19:03 | ECGEPIP ---
[facility] - ED Test Date: 2021-03-03 Pat Name: KALI SEGAL Department: Room: - Gender: Male Rn Documentation: : 1960 Requested By: EDGAR CLINE PA-C Order Number: [id number] Reading MD: Yoli Lerner Measurements Intervals [place] Rate: 67 P: 7 DC: 146 QRS: -6 QRSD: 78 T: -2 QT: 378 QTc: 399 Interpretive Statements Normal sinus rhythm Nonspecific ST abnormality similar 03/03/21 4:23 Electronically Signed on 03-03-2021 19:02:51 EDT by Yoli Lerner
== END 2021-03-03 07:50 | disposition home or self-care (01) ==
LOC: M ED 03:57
DX: U07.1 COVID-19 (principal); R07.89 Other chest pain; E66.9 Obesity, unspecified; I10 Essential (primary) hypertension; G47.33 Obstructive sleep apnea (adult) (pediatric); R51.9 Headache, unspecified; K21.9 Gastro-esophageal reflux disease without esophagitis; E03.9 Hypothyroidism, unspecified; Z79.899 Other long term (current) drug therapy
CPT/HCPCS: 71045; 80048; 84484; 85025; 85379; 87631; 93005; 93041; 94760; 96374; 99285; J1885

== ENCOUNTER → 2021-08-05 | Outpatient (REF) | payer BC, OTHER ==
[~2021-08-05] MED LIST changes: +NAPR-837 PO
[2021-08-05 12:27] LABS: FREE T4 0.9 NG/DL (0.76-1.46); THYROID STIMULATING HORMONE 2.59 uIU/ML (0.358-3.740); TOTAL 25(OH) VITAMIN D 31.3 NG/ML (30.0-100.0)
== END ==
LOC: M WUC 11:40 → M LAB REF 11:40
PROVIDERS: ATTEND Family Medicine
DX: E03.9 Hypothyroidism, unspecified (principal); E55.9 Vitamin D deficiency, unspecified

== ENCOUNTER → 2022-01-10 | Outpatient (CLI) | payer BC, OTHER | LOC: M PLAIMG 09:59 | PROVIDERS: ATTEND Nurse Practitioner Family | DX: R05.1 Acute cough (principal) ==

== ENCOUNTER → 2022-03-09 | Outpatient (CLI) | payer BC, OTHER ==
[2022-03-09 14:17] LABS: BASO # 0.1 10^3/uL (0.0-0.2); BASO % 1.1 % (0.0-1.0); EOS # 0.2 10^3/uL (0.0-0.5); HEMATOCRIT 44.6 % (42.0-52.0); HEMOGLOBIN 14.3 g/dl (13.5-17.5); LYMPH # 2.6 10^3/uL (1.5-5.0); LYMPH % 32.2 % (24.0-44.0); MEAN CORPUSCULAR HEMOGLOBIN 29.7 pg (27.0-33.0); MEAN CORPUSCULAR HGB CONC 32.1 g/dl (32.0-36.5); MEAN CORPUSCULAR VOLUME 92.5 fl (80.0-96.0); NEUTROPHILS # 4.2 10^3/uL (1.5-8.5); PLATELET COUNT, AUTOMATED 209 10^3/uL (150-450); RED BLOOD COUNT 4.82 10^6/uL (4.30-6.10); WHITE BLOOD COUNT 8.1 10^3/uL (4.0-10.0)
[2022-03-09 15:42] LABS: ALBUMIN 3.9 GM/DL (3.2-5.2); ALT/SGPT 47 U/L (12-78); BILIRUBIN,TOTAL 0.4 MG/DL (0.2-1.0); BLOOD UREA NITROGEN 13 MG/DL (7-18); CALCIUM LEVEL 9.1 MG/DL (8.8-10.2); CARBON DIOXIDE LEVEL 29 MEQ/L (21-32); CHLORIDE LEVEL 106 MEQ/L (98-107); CHOLESTEROL LEVEL 141 MG/DL (<200); CHOLESTEROL RISK RATIO 4.028 (<5); CREATININE FOR GFR 0.99 MG/DL (0.70-1.30); FREE T4 0.96 NG/DL (0.76-1.46); GLOMERULAR FILTRATION RATE > 60.0 (>49); GLUCOSE, FASTING 106 MG/DL (70-100); HDL CHOLESTEROL 35 MG/DL (>40); LDL CHOLESTEROL 66 MG/DL (<100); NON-HDL-C 106 MG/DL; POTASSIUM SERUM 4.2 MEQ/L (3.5-5.1); SODIUM LEVEL 138 MEQ/L (136-145); TOTAL PROTEIN 7.8 GM/DL (6.4-8.2); TRIGLYCERIDES LEVEL 201 MG/DL (<150)
[2022-03-09 16:17] LABS: TOTAL 25(OH) VITAMIN D 35.3 NG/ML (30.0-100.0)
== END ==
LOC: M WUC 09:12
PROVIDERS: ATTEND Nurse Practitioner Family
DX: I10 Essential (primary) hypertension (principal); E03.9 Hypothyroidism, unspecified; E55.9 Vitamin D deficiency, unspecified

== ENCOUNTER → 2022-04-04 | Outpatient (REF) | payer BC, OTHER ==
[2022-04-04 14:03] LABS: HEMOGLOBIN A1c 5.6 % (4.0-6.0)
[2022-04-05 01:15] LABS: FOLATE 23.2 NG/ML (>5.4)
== END ==
LOC: M WUC 09:29
PROVIDERS: ATTEND Registered Nurse
DX: R20.0 Anesthesia of skin (principal)

== ENCOUNTER → 2022-09-29 | Outpatient (CLI) | payer BC, OTHER ==
[2022-09-29 10:33] LABS: ALBUMIN 3.7 G/DL (3.2-5.2); ALKALINE PHOSPHATASE 92 U/L (46-116); ALT/SGPT 37 U/L (7.0-40); AST/SGOT 23 U/L (<34); BILIRUBIN,TOTAL 0.5 MG/DL (0.3-1.2); BLOOD UREA NITROGEN 13 MG/DL (9-23); CALCIUM LEVEL 8.9 MG/DL (8.3-10.6); CARBON DIOXIDE LEVEL 29 MMOL/L (20-31); CHLORIDE LEVEL 105 MMOL/L (98-107); CHOLESTEROL LEVEL 130 MG/DL (<200); CHOLESTEROL RISK RATIO 4.26 (<5); CREATININE FOR GFR 0.97 MG/DL (0.70-1.30); GLOMERULAR FILTRATION RATE > 60.0 (>49); GLUCOSE, FASTING 104 MG/DL (74-106); HDL CHOLESTEROL 30.5 MG/DL (>40); LDL CHOLESTEROL 42.7 MG/DL (<100); NON-HDL-C 99.5 MG/DL; POTASSIUM SERUM 4.4 MMOL/L (3.5-5.1); SODIUM LEVEL 140 MMOL/L (136-145); TRIGLYCERIDES LEVEL 284 MG/DL (<150)
[2022-09-29 10:35] LABS: FREE T4 1.33 NG/DL (0.89-1.76); THYROID STIMULATING HORMONE 11.032 uIU/ML (0.55-4.78)
== END ==
LOC: M WUC 08:26
PROVIDERS: ATTEND Registered Nurse
DX: I10 Essential (primary) hypertension (principal); E78.2 Mixed hyperlipidemia; E03.9 Hypothyroidism, unspecified

== ENCOUNTER → 2022-11-17 | Outpatient (CLI) | payer BC, OTHER ==
[2022-11-17 19:34] LABS: ALBUMIN 3.8 G/DL (3.2-5.2); ALKALINE PHOSPHATASE 83 U/L (46-116); ALT/SGPT 11 U/L (7.0-40); AST/SGOT 16 U/L (<34); BILIRUBIN,TOTAL 0.9 MG/DL (0.3-1.2); BLOOD UREA NITROGEN 13 MG/DL (9-23); CALCIUM LEVEL 8.6 MG/DL (8.3-10.6); CARBON DIOXIDE LEVEL 30 MMOL/L (20-31); CHLORIDE LEVEL 104 MMOL/L (98-107); CREATININE FOR GFR 1.02 MG/DL (0.70-1.30); FREE T4 1.57 NG/DL (0.89-1.76); GLOMERULAR FILTRATION RATE > 60.0 (>49); GLUCOSE, FASTING 152 MG/DL (74-106); POTASSIUM SERUM 3.8 MMOL/L (3.5-5.1); SODIUM LEVEL 141 MMOL/L (136-145); TOTAL PROTEIN 6.7 G/DL (5.7-8.2)
[2022-11-17 19:37] LABS: TOTAL 25(OH) VITAMIN D 68.4 NG/ML (20.0-100.0)
== END ==
LOC: M WUC 15:34
PROVIDERS: ATTEND Registered Nurse
DX: E03.9 Hypothyroidism, unspecified (principal); E55.9 Vitamin D deficiency, unspecified

== ENCOUNTER → 2023-05-02 | Outpatient (CLI) | payer BC, OTHER ==
[~2023-05-02] MED LIST changes: +E-Z-GAS II EFFERVESCENT PACKET (SODIUM BICARB./CITRIC ACID/SIMETHICONE) As Ordered ONE; +E-Z-HD 98% w/w 340GM SUSP BTL As Ordered ONE; +E-Z-PAQUE 96% w/w SUSP 176GM BTL As Ordered ONE
== END ==
LOC: M RAD 08:25
PROVIDERS: ATTEND Registered Nurse
DX: K21.9 Gastro-esophageal reflux disease without esophagitis (principal); K44.9 Diaphragmatic hernia without obstruction or gangrene; R10.10 Upper abdominal pain, unspecified; R14.0 Abdominal distension (gaseous)

== ENCOUNTER 2023-06-03 02:32 | Emergency (ER) | payer BC, OTHER ==
[~2023-06-03] VITALS: Ht 175.3 cm; Wt 125.0 kg
[~2023-06-03 02:32] MED LIST changes: -E-Z-GAS II EFFERVESCENT PACKET (SODIUM BICARB./CITRIC ACID/SIMETHICONE) As Ordered ONE; -E-Z-HD 98% w/w 340GM SUSP BTL As Ordered ONE; -E-Z-PAQUE 96% w/w SUSP 176GM BTL As Ordered ONE
[2023-06-03 03:15] LABS: BASO # 0.1 10^3/uL (0.0-0.2); EOS # 0.2 10^3/uL (0.0-0.5); HEMATOCRIT 42.5 % (42.0-52.0); HEMOGLOBIN 14.9 g/dl (13.5-17.5); LYMPH # 2.6 10^3/uL (1.5-5.0); LYMPH % 32.8 % (24.0-44.0); MEAN CORPUSCULAR HEMOGLOBIN 30.8 pg (27.0-33.0); MEAN CORPUSCULAR HGB CONC 35.1 g/dl (32.0-36.5); MEAN CORPUSCULAR VOLUME 87.8 fl (80.0-96.0); MONO # 0.8 10^3/uL (0.0-0.8); MONO % 10.2 % (2.0-8.0); NEUTROPHILS # 4.2 10^3/uL (1.5-8.5); NEUTROPHILS % 52.9 % (36.0-66.0); PLATELET COUNT, AUTOMATED 200 10^3/uL (150-450); RED BLOOD COUNT 4.84 10^6/uL (4.30-6.10)
[2023-06-03 03:39] LABS: CK-MB VALUE MASS < 1.0 NG/ML (<3.6)
[2023-06-03 03:41] LABS: BLOOD UREA NITROGEN 16 MG/DL (9-23); CALCIUM LEVEL 8.8 MG/DL (8.3-10.6); CARBON DIOXIDE LEVEL 29 MMOL/L (20-31); CHLORIDE LEVEL 105 MMOL/L (98-107); CREATININE FOR GFR 0.99 MG/DL (0.70-1.30); GLOMERULAR FILTRATION RATE > 60.0 (>49); GLUCOSE, FASTING 166 MG/DL (74-106); POTASSIUM SERUM 4.4 MMOL/L (3.5-5.1); SODIUM LEVEL 141 MMOL/L (136-145)
[2023-06-03 03:45] LABS: CPK CREATINE PHOSPHOKINASE 115 U/L (46-171); MB/CK RELATIVE INDEX 0.86 (< OR =4)
[2023-06-03 05:02] LABS: CK-MB VALUE MASS < 1.0 NG/ML (<3.6)
[2023-06-03 05:05] LABS: CPK CREATINE PHOSPHOKINASE 104 U/L (46-171); MB/CK RELATIVE INDEX 0.96 (< OR =4)
[2023-06-03 05:27] LABS: FREE T4 1.34 NG/DL (0.89-1.76); THYROID STIMULATING HORMONE 6.358 uIU/ML (0.55-4.78)
[2023-06-03 06:30] VITALS: BP 123/63
[2023-06-03 06:32] VITALS: TEMP 97.4; O2SAT 97
== END 2023-06-03 06:42 | disposition home or self-care (01) ==
LOC: M ED 02:32
DX: R07.9 Chest pain, unspecified (principal); I10 Essential (primary) hypertension; G47.33 Obstructive sleep apnea (adult) (pediatric); E03.9 Hypothyroidism, unspecified; F10.10 Alcohol abuse, uncomplicated; Z79.02 Long term (current) use of antithrombotics/antiplatelets; Z79.83 Long term (current) use of bisphosphonates; Z79.899 Other long term (current) drug therapy

== ENCOUNTER → 2024-03-18 | Outpatient (CLI) | payer BC ==
[~2024-03-18] MED LIST changes: +B-12100010 PO; +VITA100093 PO
== END ==
LOC: M EKG 12:47
PROVIDERS: ATTEND Registered Nurse
DX: Z01.818 Encounter for other preprocedural examination (principal)

== ENCOUNTER 2024-03-20 11:41 | Day surgery (SDC) | payer BC ==
[~2024-03-20] VITALS: Ht 177.2 cm; Wt 128.5 kg
[2024-03-20] MEDS ORDERED: DEXTROSE 50% 50ML SYRINGE IV PRN (12:00)
[2024-03-20] MEDS ORDERED: INSULIN LISPRO (NovoLOG) PER UNIT SC PRN (12:00)
[2024-03-20] MEDS ORDERED: GLUCAGON INJ 1MG VIAL SC PRN (12:00)
[2024-03-20] MEDS ORDERED: NS 1,000 ML IV SCH ×2 (12:00→15:05)
[2024-03-20] MEDS ORDERED: LIDOCAINE 1% SDV 5ML VIAL SC PRN (12:00)
[2024-03-20] MEDS ORDERED: GLUCOSE 4 GM CHEW PO PRN (12:00)
[2024-03-20] MEDS: INDOCYANINE GREEN 25MG VIAL (IC-GREEN) IV ONE (14:00)
[2024-03-20] MEDS: ceFAZolin SOD 2 GM in IV 1 EA IV ONE (14:16)
[2024-03-20] MEDS: ceFAZolin SOD 1 GM in DEXTROSE 5% (D5W) ADV/MINI-BAG 50 ML IV ONE (14:16)
[2024-03-20] MEDS ORDERED: LIDOCAINE 2% 100MG/5ML SDV (FOR ANES.) As Ordered ONE (14:19)
[2024-03-20] MEDS ORDERED: METOCLOPRAMIDE INJ 10MG/2ML VIAL As Ordered ONE (14:19)
[2024-03-20] MEDS ORDERED: dexmedeTOMIDine (4MCG/ML)200MCG/50ML BTL (PRECEDEX) As Ordered ONE (14:19)
[2024-03-20] MEDS ORDERED: MIDAZOLAM INJ 2MG/2ML VIAL As Ordered ONE (14:19)
[2024-03-20] MEDS ORDERED: fentaNYL 250 MCG/5 ML INJECTION As Ordered ONE (14:19)
[2024-03-20] MEDS ORDERED: ROCURONIUM BROMIDE 50MG/5ML VIAL As Ordered ONE (14:19)
[2024-03-20] MEDS ORDERED: KETOROLAC 60MG 2ML VIAL As Ordered ONE (14:19)
[2024-03-20] MEDS ORDERED: propofoL 200 MG/20 ML VIAL As Ordered ONE (14:19)
[2024-03-20] MEDS ORDERED: SUGAMMADEX SODIUM 500 MG/5 ML VIAL (BRIDION) As Ordered ONE (14:19)
[2024-03-20] MEDS ORDERED: ONDANSETRON 4MG 2ML VIAL As Ordered ONE (14:19)
[2024-03-20] MEDS: HEPARIN SOD (PORCINE) 5000UNITS/ML 1ML VIAL/SYRINGE SQ ONE (14:20)
[2024-03-20] MEDS ORDERED: ACETAMINOPHEN 1000MG 100ML IV BAG As Ordered ONE (14:38)
[2024-03-20] MEDS ORDERED: LIDOCAINE 5% OINT 30GM TUBE As Ordered ONE (14:44)
[2024-03-20] MEDS ORDERED: ONDANSETRON 4MG 2ML VIAL IV PRN (15:05)
[2024-03-20] MEDS ORDERED: HYDROMORPHONE HCL 0.5 MG/ 0.5 ML SYRINGE IV PRN (15:05)
[2024-03-20] MEDS ORDERED: fentaNYL 100 MCG/2 ML INJECTION IV PRN (15:05)
[2024-03-20] MEDS ORDERED: oxyCODONE 5MG TAB PO PRN (15:10)
[2024-03-20 16:15] VITALS: BP 147/83; TEMP 96.8; O2SAT 95
== END 2024-03-20 16:35 | disposition home or self-care (01) ==
LOC: M SDC 11:41
PROVIDERS: ATTEND Surgery
DX: K82.8 Other specified diseases of gallbladder (principal); I10 Essential (primary) hypertension; E78.5 Hyperlipidemia, unspecified; E03.9 Hypothyroidism, unspecified; K21.9 Gastro-esophageal reflux disease without esophagitis; G47.33 Obstructive sleep apnea (adult) (pediatric); Z79.899 Other long term (current) drug therapy
CPT/HCPCS: 47562; 88304; J0131; J0665; J0690; J1100; J1885; J2250; J2405; J2765; J3010; Q9968; S2900

== ENCOUNTER → 2024-04-09 | Outpatient (REF) | payer BC, OTHER | LOC: M LAB REF 14:51 | PROVIDERS: ATTEND Family Medicine | DX: R30.0 Dysuria (principal) ==

== ENCOUNTER → 2024-04-16 | Outpatient (CLI) | payer BC | LOC: M RAD 16:30 | PROVIDERS: ATTEND Family Medicine | DX: R31.9 Hematuria, unspecified (principal); K80.20 Calculus of gallbladder without cholecystitis without obstruction ==

== ENCOUNTER → 2024-08-01 | Outpatient (REF) | payer BC, OTHER ==
[2024-08-01 12:29] LABS: APPEARANCE, URINE CLEAR (CLEAR); BACTERIA, URINE AUTO NEGATIVE (NEGATIVE); BILIRUBIN, URINE AUTO NEGATIVE (NEGATIVE); BLOOD, URINE BLOOD 2+ (NEGATIVE); COLOR, URINE YELLOW (YELLOW); GLUCOSE, URINE (UA) AUTO NEGATIVE (NEGATIVE); KETONE, URINE AUTO NEGATIVE (NEGATIVE); LEUKOCYTE ESTERASE, URINE AUTO NEGATIVE (NEGATIVE); NITRITE, URINE AUTO NEGATIVE (NEGATIVE); PROTEIN, URINE AUTO NEGATIVE (NEGATIVE); RBC, URINE AUTO 1 /HPF (0-3); SQUAMOUS EPITHELIAL CELL UR AU 0 /HPF (0-6); UROBILINOGEN, URINE AUTO 0.2 mg/dL (0.0-2.0); WBC, URINE AUTO 0 /HPF (0-3)
== END ==
LOC: M LAB REF 11:43
PROVIDERS: ATTEND Internal Medicine
DX: R31.9 Hematuria, unspecified (principal)

== ENCOUNTER → 2024-09-04 | Outpatient (CLI) | payer BC | LOC: M PLAIMG 11:48 | PROVIDERS: ATTEND Nurse Practitioner Family | DX: S46.012A Strain of muscle(s) and tendon(s) of the rotator cuff of left shoulder, initial encounter (principal); S43.432A Superior glenoid labrum lesion of left shoulder, initial encounter; M19.012 Primary osteoarthritis, left shoulder; M25.412 Effusion, left shoulder ==